=== PATIENT | male | born 1975 | race Caucasian/White ===

== ENCOUNTER 2020-01-23 17:52 | Outpatient (REF) | payer OTHER, SELFPAY ==
[2020-01-23 18:12] LABS: MANUAL DIFF FLAG NO
[2020-01-23 18:15] LABS: Basophils Absolute Auto 0.1 X10*3/uL (0.0-0.2); Basophils Percent Auto 0.7 % (0-2); Eosinophils Absolute Auto 0.2 X10*3/uL (0.0-0.4); Hematocrit 41.4 % (42-52); Hemoglobin 14.2 g/dl (14.0-18.0); Imm Gran Abs Auto 0.01 X10*3/uL (0.00-0.03); Imm Gran Pct Auto 0.1 % (0.0-0.4); Lymphocytes Absolute Auto 2.1 X10*3/uL (1.2-4.9); Mean Corpuscular HGB Conc 34.3 g/dl (31.0-36.0); Mean Corpuscular Hemoglobin 30.8 pg (27.0-33.0); Mean Corpuscular Volume 89.8 fL (80-98); Mean Platelet Volume 8.7 fL (9.4-12.4); Monocytes Absolute Auto 0.7 X10*3/uL (0.1-1.2); Monocytes Percent Auto 10.1 % (2-11); Neutrophils Absolute Auto 4.3 X10*3/uL (2.0-8.3); Neutrophils Percent Auto 59.1 % (45-73); Platelet Count 249 X10*3/uL (160-400); Red Blood Count 4.61 X10*6/uL (4.60-5.80); Red Cell Distribution Width 12.7 % (11.0-16.0); White Blood Count 7.3 X10*3/uL (4.8-10.8)
[2020-01-23 18:36] LABS: Alanine Aminotransferase 30 U/L (0-40); Albumin Level 4.8 g/dL (3.5-5.0); Alkaline Phosphatase 93 U/L (39-117); Anion Gap 13 (12-20); Aspartate Amino Transferase 23 U/L (5-37); Bilirubin Total 0.6 mg/dL (0.0-1.0); Blood Urea Nitrogen 16 mg/dL (9-16); Calcium 9.7 mg/dL (8.4-10.2); Carbon Dioxide 26 mmol/L (22-29); Chloride 99 mmol/L (96-108); Estimated Glomerular Filt Rate > 60; Glucose Random 95 mg/dL (60-115); Lipase 33 U/L (8-78); Potassium 4.1 mmol/l (3.3-5.1); Sodium 134 mmol/L (135-145)
== END 2020-01-23 17:53 | disposition home or self-care (01) ==
LOC: HO.LAB 17:52
PROVIDERS: PCP Internal Medicine; Visit Provider Internal Medicine
DX: R19.09 Other intra-abdominal and pelvic swelling, mass and lump (principal); R10.9 Unspecified abdominal pain
CPT/HCPCS: 36415; 80053; 83690; 85025

== ENCOUNTER 2020-04-16 08:40 | Outpatient (REF) | payer BC, SELFPAY ==
--- NOTE | 2020-04-16 08:46 | CT_ITS ---
EXAMINATION: CT ABDOMEN AND PELVIS WITH CONTRAST CLINICAL INFORMATION: Abdominal distention COMPARISON: Small bowel series April 2017 TECHNIQUE: Multidetector volumetric images were obtained from the superior aspect of the liver through the pubic symphysis following administration 85 mL of Omnipaque 350 intravenous contrast. Sagittal and coronal reformatted images were obtained on the technologist's workstation. Oral contrast: Yes This CT examination was performed using dose optimization techniques as appropriate, variously including the following: *Automated exposure control *Adjustment of mA and/or kV according to patient size (this includes techniques or standardized protocols for targeted exams where dose is matched to indication/reason for exam; i.e. extremities or head) *Use of iterative reconstruction technique DLP: 659 mGy-cm FINDINGS: LUNG BASES: The visualized lung bases are unremarkable. LIVER, GALLBLADDER, AND BILIARY TREE: The liver is normal in size, shape, and attenuation. No focal hepatic lesion or biliary ductal dilatation is present. The gallbladder is unremarkable with no evidence of radiopaque gallstones, gallbladder wall thickening, or obvious pericholecystic inflammatory changes. PANCREAS: Unremarkable. SPLEEN: Unremarkable. ADRENAL GLANDS: Unremarkable. KIDNEYS AND URETERS: The kidneys are normal in size, shape, and attenuation. No hydronephrosis, hydroureter, or calculi seen. No perinephric stranding. BLADDER: Unremarkable. GASTROINTESTINAL TRACT: There is diverticulosis of the colon. No evidence of diverticulitis is seen. Small and large bowel are otherwise unremarkable. The appendix is unremarkable. The stomach is unremarkable. ABDOMINAL WALL: There is an umbilical hernia containing fat. LYMPH NODES: Normal. VASCULAR: Unremarkable. PELVIC VISCERA: Unremarkable. OSSEOUS STRUCTURES: There are degenerative changes of the spine. CT/CT abdomen pelvis w con IMPRESSION: Diverticulosis of the colon. Umbilical hernia containing fat.
[2020-04-16] MEDS: Barium Sulfate Oral (Vanilla) 450 ML ORAL.SUSP 900 ML PO (10:45)
[2020-04-16] MEDS: iohexoL 350 MG/ML 100 ML INFUS..BTL 85 ML IV (10:53)
== END 2020-04-16 08:41 | disposition home or self-care (01) ==
LOC: HO.CT 08:40
PROVIDERS: Visit Provider Internal Medicine
DX: R10.9 Unspecified abdominal pain (principal); R19.09 Other intra-abdominal and pelvic swelling, mass and lump
CPT/HCPCS: 74177; Q9967

== ENCOUNTER 2020-11-02 12:40 | Outpatient (REF) | payer BC, SELFPAY ==
--- NOTE | ~2020-11-02 | US_ITS ---
EXAMINATION: US right lower abdomen, LIMITED/FOLLOW UP CLINICAL INFORMATION: Pain COMPARISON: CT scan of April 16, 2020 TECHNIQUE: Targeted ultrasound evaluation right inguinal region FINDINGS: In the region of patient's pain there appears to be a hernia which is containing fat however I cannot exclude a loop of bowel in this location. The width of the defect is only 5 mm. No definite edematous change within the surrounding tissues is appreciated and no free fluid is seen. Benign appearing inguinal lymph nodes present. US/US pelvic limited IMPRESSION: Small 5 mm in width right inguinal region hernia in region of pain containing fat and possibility of a knuckle of bowel.
== END 2020-11-02 12:41 | disposition home or self-care (01) ==
LOC: HO.US 12:40
PROVIDERS: PCP Internal Medicine; Visit Provider Nurse Practitioner Family
DX: R10.30 Lower abdominal pain, unspecified (principal); R19.09 Other intra-abdominal and pelvic swelling, mass and lump
CPT/HCPCS: 76857

== ENCOUNTER → 2020-11-06 13:39 | Outpatient (BNVA) | payer BC, SELFPAY | PROVIDERS: PCP Internal Medicine; Referring Provider Internal Medicine; Visit Provider Surgery ==

== ENCOUNTER 2020-11-15 08:53 | Day surgery (SDC) | payer BC, SELFPAY ==
--- NOTE | 2020-11-14 08:36 | HO.ANESPROP2 ---
Documented by User: Anabella Billingsley 11/14/20 08:45 HPI - Anesthesia Eval Consult details Narrative: 45yo M for Right Hernia Repair Inguinal with Mesh PMFSH Active Problems Active Problems: All Active Problems (Updated 11/06/20 @ 15:05 by Alexey Caceres MD) Umbilical hernia (Acute) Right inguinal hernia (Acute) Hernia (Acute) Inguinal swelling (Acute) Inguinal pain (Acute) Obesity (BMI 30-39.9) (Acute) Abdominal bloating (Acute) Umbilical mass (Acute) Left sided abdominal pain (Acute) Past Medical History Medical History Anxiety Attention deficit disorder Hyperlipidemia Insomnia Obesity (BMI 30-39.9) Right inguinal hernia Umbilical hernia Varicocele Family History Family History Father Coronary artery disease Hypertension Brother Hyperlipidemia Surgical History Surgical History Status post pericardial cyst excision (~08/13/16) Social History Social History Patient Tobacco Use Status: Never used Tobacco Use of substances other than those prescribed or required for medical reasons: No Are you DNR?: No Advance Directives: No Advance Directives Information Provided: Yes Meds Allergies Allergy/AdvReac Type Severity Reaction Status Date / Time No Known Allergies Allergy Verified 11/06/20 14:17 Exam Exam Date and Time: November 14, 2020 0836 Assessment and Plan Assessment Anesthesia Assessment: Chart Reviewed Documented by User: Earline Thompson MD 11/15/20 10:56 PMFSH Past Medical History Medical History Anxiety Attention deficit disorder Hyperlipidemia Insomnia Obesity (BMI 30-39.9) Right inguinal hernia Umbilical hernia Varicocele Family History Family History Father Coronary artery disease Hypertension Brother Hyperlipidemia Family history of problems with anesthesia: No Surgical History Surgical History Status post pericardial cyst excision (~08/13/16) History of Problems with Anesthesia: No Social History Social History Patient Tobacco Use Status: Never used Tobacco Use of substances other than those prescribed or required for medical reasons: No Are you DNR?: No Advance Directives: No Advance Directives Information Provided: Yes Meds Allergies Allergy/AdvReac Type Severity Reaction Status Date / Time No Known Allergies Allergy Verified 11/06/20 14:17 Exam Airway Mallampati Class: II TM Dist: >3cm Neck ROM: Full Loose/Missing/Broken Teeth: No Heart: RRR Lungs: CTA Assessment and Plan Assessment Anesthesia Assessment: Anesthesia Plan Discussed Final Anesthetic Review Family History of Problems with Anesthesia: No History of Problems with Anesthesia: No NPO: Yes ASA Class: II Final Preanesthetic Review: Meds/Allgs Chart Reviewed, Consent Obtained/Reviewed and Anes Risks/Benef Reviewed Patient Risk: Low Procedure Risk: Low Anesthetic Plan Anesthetic Plan: GA Disposition: Standard PACU
[2020-11-15] VITALS (12 sets, daily range): BP systolic 108–140; BP diastolic 67–91; PULSE 45–62; RESP 17–20; TEMP 36.1–36.3; O2SAT 97–99; BMI 30.4
[2020-11-15] MEDS: Lactated Ringers 1,000 ML 100 ML IVCONT (10:20)
--- NOTE | 2020-11-15 11:25 | MHC.SHP ---
Pre-Procedural Eval Section A Date of Service: 11/15/20 Section B Chief Complaint: Right Inguinal hernia Allergies: Allergies Allergy/AdvReac Type Severity Reaction Status Date / Time No Known Allergies Allergy Verified 11/06/20 14:17 Plan I have reviewed the history and physical and performed a pertinent physical examination on my patient. No changes have occurred unless specified.
--- NOTE | 2020-11-15 11:26 | PM.DS ---
DS: Providers Provider Primary care physician: Bobo Avilez MD DS: Medications Discharge Medications Home Medications: Previous Rx's Medication Instructions Recorded lorazepam 0.5 mg tablet 0.5 mg PO BID PRN 30 Days #60 tab 11/12/20 DS: Summary Time Spent with Patient Time attestation: Total time spent providing and/or coordinating discharge services: Physical Exam Vital Signs: Vital Signs: Last Vital Signs Temp 97.4 F 11/15/20 09:56 Pulse 62 11/15/20 09:56 Resp 18 11/15/20 09:56 BP 108/77 11/15/20 09:56 Pulse Ox 98 11/15/20 09:56 Body Mass Index 30.4 Discharge Plan Discharge Patient Disposition: Home, Self-Care Referrals: Bobo Avilez MD [Primary Care Provider] - 1 Week Discharge Medications: No Action lorazepam 0.5 mg tablet 0.5 mg PO BID PRN (Reason: anxiety) 30 Days Qty: 60 RF: 0
--- NOTE | 2020-11-15 12:34 | W.PM.OPN ---
Operative Note Operative Note Date of Service: 11/15/20 Narrative: Preop diagnosis: Right inguinal hernia Postop diagnosis: Right inguinal hernia indirect Procedure: Repair of right inguinal hernia with mesh Surgeon: Alexey Caceres MD metal forger's assistant: CHRISTINA Robertson The patient is a 45-year-old male with note of a reducible mass on the right groin with an ultrasound suggesting a right inguinal hernia. He understood the technique of repair with mesh. He was aware of the risks, benefits, and alternatives to He was brought the operating room and placed supine on the table under general anesthesia via laryngeal mask airway. The right groin was prepped and draped in the usual sterile fashion. A surgical time-out was done. The patient received cefazolin 2 g IV preoperatively. I marked my planned line of incision along an imaginary line from the anterior superior iliac spine to the pubic ramus. Infiltrated this area with lidocaine 1%. I made a short incision using a blade 15. This was carried down through the full-thickness of skin subcutaneous fat until I was able to expose the external oblique aponeurosis. By doing so, I was able to visualize the external ring. I bluntly dissected this to carefully define this. I made an incision on the external oblique aponeurosis overlying the inguinal canal using a blade 15. Incisions extended inferomedially to connect with the external ring. I applied hemostats on the edges of this divided aponeurosis. I bluntly dissected the underside of the aponeurosis to create space for the mesh. I then bluntly dissected the spermatic cord and its contents using my index finger until was able to pass a Cordell drain around this. This Greer drain was used for retraction. I identified the vas deferens and its accompanying vessels. There was note of a small hernia containing fat and this was dissected off the rest of the cord contents until this was reduced through the internal ring. I reinforced the internal ring with a small sized Prolene plug. The plug was secured with Prolene 2 sutures to the shelving edge of the inguinal ligament laterally, and the internal oblique superiorly and medially. I reinforced the floor of the canal with a keyhole mesh. The tails of the mesh were passed around the cord at level of internal ring and were secured with Prolene 2 sutures. I secured this mesh with Prolene 2 sutures shelving edge of the inguinal ligament laterally and the internal oblique superiorly and medially as well as the pubic ramus inferomedially. I then copies irrigated. Once hemostasis was ensured, I proceeded to remove the Cordell drain and closed the aponeurosis running Dexon 2-0 stitch to re-create the external ring. The subcutaneous layer was reapposed with Dexon 3-0 interrupted sutures. Skin closure was achieved with Dexon 4-0 subcuticular running stitch. The area was infiltrated with Marcaine 0.5% for postop analgesia. Steri-Strips and dressings were applied The patient tolerated procedure well. There were no complication noted. Initial and final counts of sponges and instruments were correct. Estimated blood loss was about 3 cc. The patient was extubated without difficulty and transferred to the recovery room with stable vital signs.
--- NOTE | 2020-11-15 12:40 | P.BOP_ITS ---
Brief Operative Note Date of Service: 11/15/20 Pre-op diagnosis: Right inguinal hernia Post-op diagnosis: same Procedure: Right inguinal hernia indirect Surgeon: Alexey Caceres MD Anesthesia: GLMA Was an Lottery Manager used for this Procedure?: Yes Lottery Manager: Trinh Robertson Estimated blood loss (mL): 3 Pathology: none sent Condition: stable Disposition: PACU
[2020-11-15] MEDS: oxyCODONE HCl Immed Release 5 MG TABLET PO (13:01)
[2020-11-15] MEDS: fentaNYL citrate/PF 100 MCG/2 ML VIAL 25 MCG IVPUSH ×2 (13:01→13:29)
== END 2020-11-15 14:30 | disposition home or self-care (01) ==
PROVIDERS: PCP Internal Medicine; Visit Provider Surgery
PROC: (CPT 49505; principal; 2020-11-15 11:10)
DX: K40.90 Unilateral inguinal hernia, without obstruction or gangrene, not specified as recurrent (principal); E78.5 Hyperlipidemia, unspecified; F41.9 Anxiety disorder, unspecified; F98.8 Other specified behavioral and emotional disorders with onset usually occurring in childhood and adolescence; G47.00 Insomnia, unspecified; Z79.899 Other long term (current) drug therapy
CPT/HCPCS: 49505; C1781; J0690; J1100; J2250; J2405; J3010

== ENCOUNTER → 2020-11-27 10:26 | Outpatient (BNVA) | payer BC, SELFPAY | PROVIDERS: PCP Internal Medicine; Referring Provider Internal Medicine; Visit Provider Surgery ==

== ENCOUNTER 2022-02-28 07:10 | Outpatient (REF) | payer BC, SELFPAY ==
[2022-02-28 07:22] LABS: MANUAL DIFF FLAG NO
[2022-02-28 08:02] LABS: Basophils Percent Auto 0.9 % (0-2); Eosinophils Absolute Auto 0.2 X10*3/uL (0.0-0.4); Eosinophils Percent Auto 4.1 % (0-4); Hematocrit 38.2 % (42.0-52.0); Hemoglobin 12.9 g/dl (14.0-18.0); Lymphocytes Absolute Auto 1.5 X10*3/uL (1.2-4.9); Lymphocytes Percent Auto 34.7 % (20-40); Mean Corpuscular HGB Conc 33.8 g/dl (31.0-36.0); Mean Corpuscular Hemoglobin 30.4 pg (27.0-33.0); Mean Corpuscular Volume 89.9 fL (80.0-98.0); Mean Platelet Volume 9.2 fL (9.4-12.4); Monocytes Absolute Auto 0.6 X10*3/uL (0.1-1.2); Monocytes Percent Auto 12.4 % (2-11); Neutrophils Absolute Auto 2.1 x10*3/uL (2.0-8.3); Neutrophils Percent Auto 47.9 % (45-73); Platelet Count 220 X10*3/uL (160-400); Red Blood Count 4.25 X10*6/uL (4.60-5.80); Red Cell Distribution Width 12.6 % (11.0-16.0); White Blood Count 4.4 X10*3/uL (4.8-10.8)
[2022-02-28 08:40] LABS: Alanine Aminotransferase 18 U/L (0-40); Albumin Level 4.4 g/dL (3.5-5.0); Alkaline Phosphatase 89 U/L (39-117); Anion Gap 11 (12-20); Aspartate Amino Transferase 20 U/L (5-37); Bilirubin Total 0.6 mg/dL (0.0-1.0); Blood Urea Nitrogen 15 mg/dL (9-16); Calcium 9.5 mg/dL (8.4-10.2); Carbon Dioxide 27 mmol/L (22-29); Chloride 105 mmol/L (96-108); Cholesterol 223 mg/dL; Estimated Glomerular Filt Rate > 60; Glucose Fasting 91 mg/dL (60-99); HDL Cholesterol 51 mg/dL; LDL Cholesterol Calculated 154 mg/dl; Potassium 4.4 mmol/L (3.3-5.1); Sodium 139 mmol/L (135-145); TSH reflex Free T4 1.82 uIU/mL (0.32-4.0); Total Protein 7.2 g/dL (6.5-8.0); Triglycerides 92 mg/dL; Vitamin D 25-OH Total 18.5 ng/mL (>30)
[2022-02-28 09:13] LABS: Appearance Urine Clear; Color Urine Yellow; Glucose Urine UA Negative (Negative); Leukocyte Esterase Urine Negative (Negative); Nitrite Urine Negative (Negative); PH 5.5 (5.0-9.0); Specific Gravity - Urine <= 1.005 (1.005-1.025); Urine Blood Negative (Negative); Urine Ketones Negative (Negative); Urine Protein Negative (Neg-Trace)
== END 2022-02-28 07:11 | disposition home or self-care (01) ==
LOC: HO.LAB 07:10
PROVIDERS: PCP Internal Medicine; Visit Provider Internal Medicine
DX: I10 Essential (primary) hypertension (principal); R30.0 Dysuria; E78.00 Pure hypercholesterolemia, unspecified; E55.9 Vitamin D deficiency, unspecified
CPT/HCPCS: 36415; 80053; 80061; 81003; 82306; 84443; 85025

== ENCOUNTER 2022-03-27 08:06 | Day surgery (SDC) | payer BC, SELFPAY ==
--- NOTE | 2022-03-26 09:41 | HO.ANESPROP2 ---
Documented by User: Anabella Billingsley NP 03/26/22 09:41 HPI - Anesthesia Eval Consult details Narrative: 46yo M for Hernia Repair Umbilical possible mesh PMFSH Active Problems Active Problems: All Active Problems (Updated 03/01/22 @ 09:39 by Bobo Avilez MD) Left sided abdominal pain (Acute) Umbilical mass (Acute) Abdominal bloating (Acute) Inguinal pain (Acute) Inguinal swelling (Acute) Hernia (Acute) Internal hemorrhoid, bleeding (Acute) Preoperative examination (Acute) Anxiety (Acute) Umbilical hernia (Acute) Right inguinal hernia (Acute) Obesity (BMI 30-39.9) (Acute) Past Medical History Medical History Anxiety Attention deficit disorder Hyperlipidemia Insomnia Obesity (BMI 30-39.9) Right inguinal hernia Umbilical hernia Varicocele Family History Family History Father Coronary artery disease Hypertension Brother Hyperlipidemia Family history of problems with anesthesia: No Surgical History Surgical History History of right inguinal hernia repair Status post pericardial cyst excision (~08/13/16) History of Problems with Anesthesia: No Social History Social History Housing: House Patient Tobacco Use Status: Never used Tobacco e-Cigarette/Vaping Use: Never Used Use of substances other than those prescribed or required for medical reasons: No Are you DNR?: No Advance Directives: No Advance Directives Information Provided: Yes service: No Current occupational status: employed Meds Allergies Allergy/AdvReac Type Severity Reaction Status Date / Time No Known Allergies Allergy Verified 03/23/22 12:19 Exam Exam Date and Time: March 26, 2022 0941 Pertinent Lab Results Pertinent Lab Results: Laboratory Tests 02/28/22 02/28/22 07:21 07:21 WBC 4.4 L Hgb 12.9 L Hct 38.2 L Plt Count 220 Sodium 139 Potassium 4.4 Chloride 105 Carbon Dioxide 27 BUN 15 Creatinine 0.82 Assessment and Plan Final Anesthetic Review Family History of Problems with Anesthesia: No History of Problems with Anesthesia: No Documented by User: Aneat Maxwell MD 03/27/22 09:42 PMFSH Past Medical History Medical History Anxiety Attention deficit disorder Hyperlipidemia Insomnia Obesity (BMI 30-39.9) Right inguinal hernia Umbilical hernia Varicocele Family History Family History Father Coronary artery disease Hypertension Brother Hyperlipidemia Surgical History Surgical History History of right inguinal hernia repair Status post pericardial cyst excision (~08/13/16) Social History Social History Housing: House Patient Tobacco Use Status: Never used Tobacco e-Cigarette/Vaping Use: Never Used Use of substances other than those prescribed or required for medical reasons: No Are you DNR?: No Advance Directives: No Advance Directives Information Provided: Yes service: No Current occupational status: employed Meds Allergies Allergy/AdvReac Type Severity Reaction Status Date / Time No Known Allergies Allergy Verified 03/23/22 12:19 Exam Airway Mallampati Class: III TM Dist: >3cm Neck ROM: Full Heart: RRR Lungs: CTA Assessment and Plan Final Anesthetic Review ASA Class: II Final Preanesthetic Review: No Changes in Pt Med Stat, Meds/Allgs Chart Reviewed, Consent Obtained/Reviewed and Anes Risks/Benef Reviewed Patient Risk: Low Procedure Risk: Low Anesthetic Plan Anesthetic Plan: GA Disposition: Standard PACU
[2022-03-27] VITALS (7 sets, daily range): BP systolic 114–137; BP diastolic 64–86; PULSE 51–67; RESP 16; TEMP 36.2–36.6; O2SAT 95–97; BMI 29.3
--- NOTE | 2022-03-27 09:35 | MHC.SHP ---
Pre-Procedural Eval Section A Date of Service: 03/27/22 Section B Chief Complaint: Umbilical hernia without obstruction or gangrene Details of Present Illness: Has reducible umbilical hernia Relevant Social History: None Present Medications: see Short Stay Collaborative assessment Medical History: No relevant PMH History of Previous Operations: Relevant previous surgery/procedure and date(s) Allergies: Allergies Allergy/AdvReac Type Severity Reaction Status Date / Time No Known Allergies Allergy Verified 03/23/22 12:19 Review of Systems Sugical H&P ROS: Negative: Constitution, Cardiovascular, Respiratory, Neurological, Psychiatric, Hem-Onc, Allergic/Immunologic, Gastrointestinal, Genitourinary, Musculoskeletal, Integumentary, Endocrine and Eyes/Ears/Nose/Throat Exam Surgical H&P Exam: Normal: HEENT, Normal: Heart, Normal: Lungs, Normal: Extremities, Normal: Skin and Normal: Neurological and Significant Findings: Abdomen ( small umbilical hernia) Plan Diagnosis/Plan: Unchanged I have reviewed the history and physical and performed a pertinent physical examination on my patient. No changes have occurred unless specified. Time Spent With Patient Time: Total time managing care of this patient today ____ minutes.
[2022-03-27] MEDS: Lactated Ringers 1,000 ML 100 ML IVCONT (09:41)
--- NOTE | 2022-03-27 10:29 | W.PM.OPN ---
Operative Note Operative Note Date of Service: 03/27/22 Narrative: Preop diagnosis: umbilical hernia Postop diagnosis: umbilical hernia Procedure : repair of umbilical hernia poss. mesh Surgeon: Alexey coreas MD The patient is a 46M with an umbilical hernia.He understood the technique of repair with mesh. He was aware of the risks, benefits and alternatives. He was brought to the OR and placed supine under general anesthesia via LMA. The abdomen was prepped and draped in the usual sterile fashion. A surgical timeout was done. The patient received Cefazolin preop. I infilatrated the planned line of incision with Lidocaine 1%. I made a trasnverse curvilinear incision on the skin using a blade 15. This was carried down through the full thickness of the skin and subcutaneous fat with electrocautery. I lifted the umbilicus as a flap off of the hernia contents. The hernia was fat containing. I sharply dissected the hernia contents down the the fascia. I divided adhesions off of the fascial edge. There was a good chunk of fat through the small fascial defect. I had to enlarge the defect to be able to reduce entire hernia contents. The fascial defect was about 1 cm. I used a small sized Ventralex mesh to reinforce the defect. This was flatted under the fascia. I secured the Prolene straps of the mesh to the fascial edge with Prolene 2-0 sutures. I closed the fascia with a figure of eight Maxon 1-0 stitch. I reapposed the deep subcutaneous tissue with Dexon 3-0 sutures. Skin closure was achieved with Dexon 4-0 subcuticular running stitch. I infiltrated the area with Marcaine .5% for postop analegesia. Dressings were applied and the procedure was completed. He tolerated the procedure well. There were no immediate complications. Initial and final counts of sponges and instruments were correct. Estimated blood loss was less than 10 cc. The patient was extubated without difficully and transferred to the recovery room with stable VS.
--- NOTE | 2022-03-27 13:56 | HO.POSTANES ---
Post Anesthesia Evaluation Post Anesthesia Evaluation Vital Signs: Vital Signs Temp Pulse Resp BP Pulse Ox O2 Del Method O2 Flow Rate 03/27/22 11:20 51 16 117/64 96 Room Air 03/27/22 11:05 53 16 114/68 96 Room Air 03/27/22 10:50 52 16 118/79 97 Nasal Cannula 2 03/27/22 10:45 60 16 137/77 97 Nasal Cannula 2 03/27/22 10:40 59 16 127/86 96 Nasal Cannula with ETCO2 2 03/27/22 10:35 98 F 58 16 119/76 95 Nasal Cannula with ETCO2 2 03/27/22 09:26 97.2 F 67 16 131/84 96 Room Air Anesthesia: General LMA Mental Status: Awake Pain Control: Satisfactory Nausea/Vomiting: None Hydration: Adequate Anesthesia-Related Issues: No Anes. Related Issues
== END 2022-03-27 12:10 | disposition home or self-care (01) ==
PROVIDERS: PCP Internal Medicine; Visit Provider Surgery
PROC: (CPT 49585; principal; 2022-03-27 10:00)
DX: K42.9 Umbilical hernia without obstruction or gangrene (principal); K66.0 Peritoneal adhesions (postprocedural) (postinfection); D64.9 Anemia, unspecified; F41.1 Generalized anxiety disorder; E66.9 Obesity, unspecified; Z68.30 Body mass index [BMI] 30.0-30.9, adult; E78.00 Pure hypercholesterolemia, unspecified; E55.9 Vitamin D deficiency, unspecified; I10 Essential (primary) hypertension; Z79.899 Other long term (current) drug therapy
CPT/HCPCS: 49585; C1781; J0690; J1100; J2250; J2405; J2795; J3010

== ENCOUNTER → 2022-04-16 13:05 | Outpatient (BNVA) | payer BC, SELFPAY | PROVIDERS: PCP Internal Medicine; Visit Provider Surgery | DX: Z13.89 Encounter for screening for other disorder (principal) ==

== ENCOUNTER 2022-11-18 16:25 | Outpatient (AMB) | payer BC, SELFPAY ==
[2022-11-18 16:26] VITALS: BP 122/80; PULSE 70; O2SAT 98; BMI 30.4
--- NOTE | 2022-11-18 16:26 | MHC.PC.OV ---
Vital Signs 11/18/22 16:26 Height 6 ft 3 in Weight 243 lb 2 oz BMI 30.4 BP 122/80 Blood Pressure Location Lt brachial Position Sitting Pulse 70 Pulse Source Pulse Oximeter Pulse Oximetry (%) 98 Oxygen Delivery Method Room Air Intake Visit Reasons: phy - due for colonoscopy Community Relations Assistant Required: No Accompanied by: Self / Same As Patient Allergies No Known Allergies Allergy (Verified 11/18/22 16:43) Medication List - Last Reconciled 11/18/22 by Bobo Avilez MD ibuprofen 600 mg PO Q6H PRN lorazepam 0.5 mg PO BID PRN 30 days oxycodone-acetaminophen 5-325 mg (Percocet) 1 tab PO Q4-6H PRN Tobacco use date assessed: 11/18/22 Dental Screening Dental Screen Date: 11/18/22 Did you have a dental visit in the last 12 months?: No Did you have a dental problem in the last 6 months where you did not have access to dental care?: No Was dental information given to patient?: No HPI phy - due for colonoscopy HPI Details Patient comes in today for his annual physical examination States that he feels okay He denies any headaches or dizziness Denies any chest pains, no SOB No nausea/vomiting, no abdominal pain No change in bowel habits noted Denies any acute urinary symptoms Had his umbilical hernia surgery/repair done back in March [address] Caceres - states that his surgery went well and he has not had any issues since his surgery Has been experiencing anxiety on and off lately - states that this is mostly related to his 's health issues and that she is again now at the ER at [facility] in [place] due to increasing abdominal pain and is being worked up Patient also brought in some FMLA forms for us to fill up for him - states that this is to allow him to be able to take time off at work whenever he is needed to help his as she often has to travel to [place] for her treatments in addition to all of the medical follow ups/appointments and treatments that she goes to locally [facility] Medical History Anxiety Attention deficit disorder Insomnia Obesity (BMI 30-39.9) Pure hypercholesterolemia Right inguinal hernia Umbilical hernia Varicocele Vitamin D deficiency Surgical History History of right inguinal hernia repair History of umbilical hernia repair (~03/27/22) Status post pericardial cyst excision (~08/13/16) Family History Father Coronary artery disease Hypertension Brother Hyperlipidemia Social History Housing: House Patient Tobacco Use Status: Never used Tobacco e-Cigarette/Vaping Use: Never Used service: No Current occupational status: employed Cognitive needs: No Hearing needs: No Vision needs: No Questionnaire PHQ-9 Over the last 2 weeks, how often have you been bothered by any of the following problems? 1. Little interest or pleasure in doing things: not at all 2. Feeling down, depressed, or hopeless: not at all 3. Trouble falling or staying asleep, or sleeping too much: not at all 4. Feeling tired or having little energy: not at all 5. Poor appetite or overeating: not at all 6. Feeling bad about yourself - or that you are a failure or have let yourself or your family down: not at all 7. Trouble concentrating on things, such as reading the newspaper or watching television: not at all 8. Moving or speaking so slowly that other people could have noticed. Or the opposite - being so fidgety or restless that you have been moving around a lot more than usual: not at all 9. Thoughts that you would be better off or of hurting yourself in some way: not at all Total score: 0 Depression Screening Interpretation: Negative [id number] - PHQ-9 Billing: Yes Source: Developed by Drs. Bk Reyez, Tanya Diaz, Earnest Bauer and colleagues, with an educational pierce from [employer]. Thrive Questionnaire Date Thrive assessed: 11/18/22 I am a: Patient What is your living situation today?: I have a steady place to live Within the past 12 months, did the food you bought not last and you didn't have the money to get more?: Never true Within the past 12 months, did you worry whether your food would run out before you got money to buy more?: Never true Do you have trouble paying for medicines?: No Do you have trouble getting transportation to medical appointments?: No Do you have trouble paying your heating and electricity bill?: No Do you have trouble taking care of your child, family member or friend?: No Do you have trouble with day-to-day activities such as bathing, preparing meals, shopping, managing finances, etc.?: No Are you currently unemployed and looking for a job?: No Are you interested in more education?: No Please select the resources that you would like help with: None Currently or been in a relationship where the following occur: no concerns reported AUDIT C Alcohol Use Questionnaire (AUDIT-C) 1. How often do you have a drink containing alcohol?: Never 3. How often do you have six or more drinks on one occasion?: Never Total Score: 0 Score Reviewed/Action Taken: Yes TAMARA-7 AMB Questionnaire TAMARA-7 Date TAMARA - 7 assessed: 11/18/22 Feeling nervous, anxious, or on edge: 0 = Not at all Not being able to stop or control worryin = Not at all Worrying too much about different things: 0 = Not at all Trouble relaxin = Not at all Being so restless that it is hard to sit still: 0 = Not at all Becoming easily annoyed or irritable: 0 = Not at all Feeling afraid as if something awful might happen: 0 = Not at all Total TAMARA-7 score (0-4 normal; 5-9 mild; 10-14 moderate; 15-21 severe): 0 Source: Developed by Drs. Bk Reyez, Tanya Diaz, Earnest Bauer and colleagues, with an educational pierce from [employer]. Review of Systems Const Denies chills, Denies fatigue, Denies fever(s), Denies headache(s), Denies malaise and Denies weakness Eyes Denies blurry vision, Denies change in vision, Denies irritation and Denies itchy eyes ENT Denies dysphagia, Denies dizziness, Denies otalgia, Denies headache(s), Denies nasal congestion, Denies neck pain, Denies odynophagia and Denies sore throat Card Denies chest pain, Denies rapid heart rate, Denies irregular heart rhythm, Denies palpitations and Denies dyspnea Resp Denies chest congestion, Denies cough, Denies dyspnea and Denies wheezing GI Denies abdominal pain, Denies bloating, Denies constipation, Denies dysphagia, Denies heartburn, Denies diarrhea, Denies nausea, Denies odynophagia and Denies vomiting Denies hematuria, Denies difficulty urinating, Denies dysuria, Denies urinary frequency and Denies urinary urgency Musc Denies back pain, Denies arthralgias, Denies joint swelling, Denies muscle weakness and Denies neck pain Skin/Breast Denies change in pigmentation, Denies lesions, Denies rash and Denies unusual bruising Neuro Denies dizziness, Denies headache(s), Denies paresthesias and Denies weakness Psych Reports anxiety (on and off) Endo Denies fatigue and Denies palpitations Aller/Immun Denies itchy eyes and Denies wheezing Physical exam (Primary Care) Vital Signs: Last Vital Signs Pulse 70 11/18/22 16:26 BP 122/80 11/18/22 16:26 Pulse Ox 98 11/18/22 16:26 Oxygen Delivery Method Room Air 11/18/22 16:26 BMI result Body Mass Index 30.4 Tobacco/Smoking Status: Tobacco use Status Tobacco use date assessed 11/18/22 11/18/22 16:35 Patient Tobacco Use Status Never used Tobacco 11/18/22 16:35 e-Cigarette/Vaping Use Never Used 11/18/22 16:35 PHQ-9: PHQ-9 Score PHQ-9: Total score 0 11/18/22 16:35 Depression Screening Interpretation: Negative Thrive Assessment: Date of Thrive Assessment Date Thrive assessed 11/18/22 11/18/22 16:35 Currently or been in a relationship where the following occur: no concerns reported Const General: no acute distress, alert and awake Orientation/consciousness: patient oriented x3 HENMT Head: Yes normocephalic and Yes atraumatic Ears: external ears normal, TM's normal bilaterally and EAC's normal General nose exam: No nasal discharge present Face and sinus: Yes normal facial exam and Yes sinuses nontender Teeth and gingiva: dentition normal Throat: Yes posterior oropharynx normal and Yes tonsils normal (no TP congestion) Eyes Eyelids: Yes eyelids normal Conjunctivae: conjunctivae normal Pupils: Equal, round and reactive pupils present EOM: EOMs intact bilaterally Neck Neck: Yes no lymphadenopathy and Yes supple Thyroid: Thyroid normal Resp Auscultation: clear to auscultation bilaterally, no rales and no wheezes Cardio Rate: regular rate Rhythm: regular rhythm Heart sounds: no murmurs GI Palpation (GI): Soft to palpation, nontender and No hepatosplenomegaly present Auscultation: normal bowel sounds General: Yes no CVA tenderness Back/Spine/Pelvis Back: no CVA tenderness Thoracic/Lumbar Spine: thoracic and lumbar spine normal to inspection Skin Lesions: no lesions Rashes: no rashes Neuro General: patient oriented x3, moves all extremities, no focal motor deficits and CN's II-XI intact bilaterally Cranial nerves: Yes Equal, round and reactive pupils present Cognition (Neuro): normal cognition Gait exam (Neuro): Normal gait present Extrem General: Yes no clubbing, cyanosis or edema Assessment and Plan Assessment & Plan (1) Annual physical exam: Code(s): Z00.00 - Encounter for general adult medical examination without abnormal findings Plan: Check labs (2) Pure hypercholesterolemia: Code(s): E78.00 - Pure hypercholesterolemia, unspecified Plan: Reinforced low cholesterol diet Total cholesterol was at 223 mg/dl and LDL cholesterol was at 154 mg/dl when last checked in February 2022 Will have patient recheck his fasting lipids JUAN M for follow up (3) Vitamin D deficiency: Code(s): E55.9 - Vitamin D deficiency, unspecified Plan: Will recheck his Vitamin D level for follow up As his Vitamin D level was still very low when last checked in February 2022, will start him on Vitamin D3 2000 units QD (4) Anxiety: Code(s): F41.9 - Anxiety disorder, unspecified Plan: Continue Lorazepam 0.5 mg BID PRN (5) Obesity (BMI 30-39.9): Code(s): E66.9 - Obesity, unspecified Plan: Reinforced diet/exercise as tolerated/lose weight (6) Colon cancer screening: Code(s): Z12.11 - Encounter for screening for malignant neoplasm of colon Plan: Will refer him for screening colonoscopy Plan Follow up in 6 months Reminded to get his follow up labs rechecked prior to his next appointment Orders: Orders Comprehensive [place]. Panel Fast Today E78.00 - Pure hypercholesterolemia, unspecified, Z00.00 - Encounter for general adult medical examination without abnormal findings Lipid Panel Today E78.00 - Pure hypercholesterolemia, unspecified, Z00.00 - Encounter for general adult medical examination without abnormal findings TSH reflex Free T4 Today E78.00 - Pure hypercholesterolemia, unspecified, Z00.00 - Encounter for general adult medical examination without abnormal findings Vitamin D 25-OH Total Today E55.9 - Vitamin D deficiency, unspecified, Z00.00 - Encounter for general adult medical examination without abnormal findings Complete Blood Count Auto Diff Today Z00.00 - Encounter for general adult medical examination without abnormal findings UA CC w/rflx Micro + Cult Today R30.0 - Dysuria, Z00.00 - Encounter for general adult medical examination without abnormal findings Comprehensive [place]. Panel Fast 6 Months E78.00 - Pure hypercholesterolemia, unspecified Lipid Panel 6 Months E78.00 - Pure hypercholesterolemia, unspecified Referrals Gastroenterology Referral Z12.11 - Encounter for screening for malignant neoplasm of colon Coding Level of Care Code Est Pt Prev Care 40-64y(75271) Diagnoses Annual physical exam Z00.00 Pure hypercholesterolemia E78.00 Vitamin D deficiency E55.9 Anxiety F41.9 Obesity (BMI 30-39.9) E66.9 Colon cancer screening Z12.11
== END 2022-11-18 17:02 | disposition home or self-care (01) ==
PROVIDERS: PCP Internal Medicine; Visit Provider Internal Medicine
DX: Z00.00 Encounter for general adult medical examination without abnormal findings (principal); E66.9 Obesity, unspecified; Z68.30 Body mass index [BMI] 30.0-30.9, adult; F41.9 Anxiety disorder, unspecified; E55.9 Vitamin D deficiency, unspecified; E78.00 Pure hypercholesterolemia, unspecified
CPT/HCPCS: 99396

== ENCOUNTER 2022-12-30 08:15 | Outpatient (REF) | payer BC, SELFPAY ==
[2022-12-30 08:30] LABS: MANUAL DIFF FLAG NO
[2022-12-30 08:50] LABS: Basophils Percent Auto 0.4 % (0-2); Eosinophils Absolute Auto 0.1 X10*3/uL (0.0-0.4); Eosinophils Percent Auto 2.3 % (0-4); Hematocrit 38.4 % (42.0-52.0); Hemoglobin 13.1 g/dl (14.0-18.0); Imm Gran Abs Auto 0.01 X10*3/uL (0.00-0.03); Imm Gran Pct Auto 0.2 % (0.0-0.4); Lymphocytes Absolute Auto 1.6 X10*3/uL (1.2-4.9); Lymphocytes Percent Auto 30.7 % (20-40); Mean Corpuscular HGB Conc 34.1 g/dl (31.0-36.0); Mean Corpuscular Hemoglobin 30.1 pg (27.0-33.0); Mean Corpuscular Volume 88.3 fL (80.0-98.0); Mean Platelet Volume 8.9 fL (9.4-12.4); Monocytes Absolute Auto 0.7 X10*3/uL (0.1-1.2); Monocytes Percent Auto 12.7 % (2-11); Neutrophils Absolute Auto 2.8 x10*3/uL (2.0-8.3); Neutrophils Percent Auto 53.7 % (45-73); Platelet Count 217 X10*3/uL (160-400); Red Blood Count 4.35 X10*6/uL (4.60-5.80); Red Cell Distribution Width 12.7 % (11.0-16.0); White Blood Count 5.3 X10*3/uL (4.8-10.8)
[2022-12-30 09:18] LABS: Appearance Urine Clear; Color Urine Yellow; Glucose Urine UA Negative (Negative); Leukocyte Esterase Urine Negative (Negative); Nitrite Urine Negative (Negative); PH 5.5 (5.0-9.0); Specific Gravity - Urine >= 1.030 (1.005-1.025); Urine Blood Negative (Negative); Urine Ketones Negative (Negative); Urine Protein Negative (Neg-Trace)
[2022-12-30 10:17] LABS: Alanine Aminotransferase 21 U/L (0-40); Albumin Level 4.3 g/dL (3.5-5.0); Alkaline Phosphatase 97 U/L (39-117); Anion Gap 12 (12-20); Aspartate Amino Transferase 22 U/L (5-37); Bilirubin Total 0.8 mg/dL (0.0-1.0); Blood Urea Nitrogen 12 mg/dL (9-16); Calcium 9.6 mg/dL (8.4-10.2); Carbon Dioxide 25 mmol/L (22-29); Chloride 107 mmol/L (96-108); Cholesterol 207 mg/dL (<200); Estimated Glomerular Filt Rate > 60; Glucose Fasting 84 mg/dL (60-99); HDL Cholesterol 46 mg/dL (>40); LDL Cholesterol Calculated 137 mg/dL (<100); Sodium 140 mmol/L (135-145); Total Protein 7.5 g/dL (6.5-8.0); Triglycerides 121 mg/dL (<150)
[2022-12-30 10:43] LABS: TSH reflex Free T4 1.43 uIU/mL (0.32-4.0); Vitamin D 25-OH Total 24.9 ng/mL (>30)
== END 2022-12-30 08:16 | disposition home or self-care (01) ==
LOC: HO.LAB 08:15
PROVIDERS: PCP Internal Medicine; Visit Provider Internal Medicine
DX: Z00.00 Encounter for general adult medical examination without abnormal findings (principal); E55.9 Vitamin D deficiency, unspecified; R30.0 Dysuria; E78.00 Pure hypercholesterolemia, unspecified
CPT/HCPCS: 36415; 80053; 80061; 81003; 82306; 84443; 85025

== ENCOUNTER 2023-01-05 07:39 | Outpatient (AMB) | payer BC, SELFPAY ==
--- NOTE | 2023-01-05 07:49 | A.OFFVIS_ITS ---
Intake Vital Signs 01/05/23 08:47 Height 6 ft 3 in Weight 233 lb 3 oz BMI 29.1 BP 117/78 Blood Pressure Location Lt brachial Position Sitting Pulse 56 Comment Pulse ox malfunctioning Intake Visit Reasons: Colonoscopy Screening Allergies No Known Allergies Allergy (Verified 11/18/22 16:43) HPI Colonoscopy Screening HPI0 Details 47-year-old male here for preprocedural meeting to discuss a screening colonoscopy. He is referred by Bobo Avilez of [facility] primary care. PMX High cholesterol Umbilical and inguinal hernias Obesity Anxiety/ADD/insomnia * SURGICAL HISTORY Umbilical hernia repair Right inguinal hernia repair Pericardial cyst excision * ALLERGIES: NKDA * [facility] Shift labs: Laboratory Tests 12/30/22 08:25 WBC 5.3 Hgb 13.1 L Hct 38.4 L MCV 88.3 MCH 30.1 Plt Count 217 Estimated GFR > 60 Total Bilirubin 0.8 AST 22 ALT 21 Alkaline Phosphata se 97 TSH 1.43 TODAY'S VISIT This is his first colonoscopy He has some rectal leakage after his BM no other problems with his bowels, no upper GI problems. There are no prior problems with or sedation. He denies any cardiac or respiratory problems. No ID problems. There is no known FHX of crc or polyps. [facility] Medical History Anxiety Attention deficit disorder Insomnia Obesity (BMI 30-39.9) Pure hypercholesterolemia Right inguinal hernia Umbilical hernia Varicocele Vitamin D deficiency Surgical History History of right inguinal hernia repair History of umbilical hernia repair (~03/27/22) Status post pericardial cyst excision (~08/13/16) Family History Father Coronary artery disease Hypertension Brother Hyperlipidemia Social History Housing: House Patient Tobacco Use Status: Never used Tobacco e-Cigarette/Vaping Use: Never Used service: No Current occupational status: employed Cognitive needs: No Hearing needs: No Vision needs: No Review of Systems Const Denies fatigue, Denies fever(s), Denies night sweats, Denies poor appetite and D enies weight loss Eyes Details: glasses Reports requires corrective lenses ENT Reports Normal hearing present, Denies dental pain, Denies dysphagia, Denies hearing loss, Denies mouth pain, Denies odynophagia, Denies throat swelling, Denies tongue swelling and Reports other (Dentition adequate) Card Reports no additional complaints Resp Reports no additional complaints GI Denies abdominal pain, Denies melena, Denies bloating, Denies hematochezia, Denies constipation, Denies GI cramping, Denies dysphagia, Denies excessive flatus, Denies early satiety, Denies heartburn, Denies diarrhea, Denies nausea, Denies odynophagia, Denies vomiting, Denies hematemesis and Reports other (Or rectal leakage after 1st BM only) Skin/Breast Denies pruritus, Denies lesions, Denies rash and Denies jaundice Neuro Reports Normal hearing present, Denies Abnormal speech present and Reports tremor(s) (With outstretched hand at shoulder level) Endo Denies fatigue Aller/Immun Denies throat swelling and Denies tongue swelling Physical Exam Const General: cooperative, no acute distress, well developed and well groomed Nutritional Appearance: average body habitus and well nourished Orientation/consciousness: oriented to person, oriented to place and oriented to time Limitations: No language barrier HEENT Head: Yes normocephalic and Yes atraumatic Eyes General: appearance normal, both eyes and all related structures Pupils: Equal, round and reactive pupils present Neck Neck: Yes normal visual inspection and Yes no lymphadenopathy Thyroid: Thyroid normal Resp Effort & Inspection: normal respiratory effort and able to speak in complete sentences Auscultation: clear to auscultation bilaterally Cardio Rate: regular rate Rhythm: regular rhythm Heart sounds: Normal, physiologic split S2 sound present Peripheral pulses: radial pulses present and posterior tibial pulses present GI Inspection: No distended and No Abdominal panniculus present Palpation (GI): Soft to palpation, nontender, no guarding and not rigid Percussion: Yes normal to percussion Auscultation: normal bowel sounds Rectal Exam - Male: Yes deferred Skin General skin exam: no rashes or lesions noted, turgor normal, skin not dry, no jaundice, No spider nevi and no striae Rashes: no rashes Nails: normal Neuro General: oriented to person, oriented to place and oriented to time Cranial nerves: Yes Equal, round and reactive pupils present and Yes Normal hearing present Speech: No Abnormal speech present Extrem General: Yes normal to inspection, No clubbing, No cyanosis and No edema Psych Appearance: grossly normal and well kempt Mental Status: mental status grossly normal Speech and movement: Normal speech and movement present Affect: normal affect Attitude: cooperative Thought process: Normal thought process present and not confabulating Thought content: Normal thought content present Insight: Fair insight present (Psych) Judgement: Fair judgement present (Psych) Assessment & Plan Assessment & Plan (1) Preoperative examination: Code(s): Z01.818 - Encounter for other preprocedural examination Plan: This is his first colonoscopy He has some rectal leakage after his BM no other problems with his bowels, no upper GI problems. Patient denies any current rectal bleeding. There are no prior problems with or sedation. He denies any cardiac or respiratory problems. No ID problems. There is no known FHX of crc or polyps. (2) Internal hemorrhoid, bleeding: Comment: advised this is likely internal hemorrhoids that are bleeding, probably irritated from the diarrhea. Advised follow-up with PCP if it continues for colonoscopy or sigmoidsocopy. gave red flag warning signs and when to go to the emergency department such as copious amounts of blood in the toilet mixed in with his stool, abdominal pain or fever. Code(s): K64.8 - Other hemorrhoids Orders: Orders Colonoscopy - GI Use Only Today Medications: New peg 3350-electrolytes 236-22.74-6.74 -5.86 gram (Golytely) until fecal effluent is clear; do not exceed a total volume of 2,000 mL 240 mL PO Q10M 1 day 4,000 mL 0RF Z12.11 - Encounter for screening for malignant neoplasm of colon Coding Level of Care Code New Pt Level 3 (94753) Diagnoses Preoperative examination Z01.818 Internal hemorrhoid, bleeding K64.8
[2023-01-05 08:47] VITALS: BP 117/78; PULSE 56; BMI 29.1
== END 2023-01-05 09:52 | disposition home or self-care (01) ==
PROVIDERS: PCP Internal Medicine; Visit Provider Nurse Practitioner
DX: Z01.818 Encounter for other preprocedural examination (principal); Z12.11 Encounter for screening for malignant neoplasm of colon; K64.8 Other hemorrhoids
CPT/HCPCS: S0285

== ENCOUNTER → 2023-01-05 07:39 | Outpatient (BNVA) | payer BC, SELFPAY | PROVIDERS: PCP Internal Medicine; Visit Provider Nurse Practitioner ==

== ENCOUNTER 2023-02-25 10:20 | Day surgery (SDC) | payer BC, SELFPAY ==
[2023-02-23 12:58] VITALS: BMI 29.1
--- NOTE | 2023-02-24 10:16 | HO.ANESPROP2 ---
Documented by User: Anabella Billingsley NP 02/24/23 10:17 HPI - Anesthesia Eval Consult details Narrative: 47yo M for Colonoscopy PMFSH Active Problems Active Problems: All Active Problems (Updated 11/18/22 @ 17:09 by Bobo Avilez MD) Colon cancer screening (Acute) Vitamin D deficiency (Acute) Pure hypercholesterolemia (Acute) Annual physical exam (Acute) Left sided abdominal pain (Acute) Umbilical mass (Acute) Abdominal bloating (Acute) Inguinal pain (Acute) Inguinal swelling (Acute) Hernia (Acute) Internal hemorrhoid, bleeding (Acute) Preoperative examination (Acute) Anxiety (Acute) Umbilical hernia (Acute) Right inguinal hernia (Acute) Obesity (BMI 30-39.9) (Acute) Past Medical History Medical History Anxiety Attention deficit disorder Insomnia Obesity (BMI 30-39.9) Pure hypercholesterolemia Right inguinal hernia Umbilical hernia Varicocele Vitamin D deficiency Family History Family History Father Coronary artery disease Hypertension Brother Hyperlipidemia Family history of problems with anesthesia: No Surgical History Surgical History History of right inguinal hernia repair History of umbilical hernia repair (~03/27/22) Status post pericardial cyst excision (~08/13/16) History of Problems with Anesthesia: No Social History Social History Housing: House Patient Tobacco Use Status: Never used Tobacco e-Cigarette/Vaping Use: Never Used Are you DNR?: No Advance Directives: No Advance Directives Information Provided: Yes Nutrition Risks: No Nutritional Risk service: No Current occupational status: employed Cognitive needs: No Hearing needs: No Vision needs: No Meds Allergies Allergy/AdvReac Type Severity Reaction Status Date / Time No Known Allergies Allergy Verified 11/18/22 16:43 Home Medications Medication Instructions Recorded Confirmed Last Taken Type No Known Home Meds 02/25/23 02/25/23 Unknown History Exam Exam Date and Time: February 24, 2023 1016 Height,Weight and Vital Signs: Height 6 ft 3 in Weight 105.687 kg Pertinent Lab Results Pertinent Lab Results: Laboratory Tests 12/30/22 08:25 WBC 5.3 Hgb 13.1 L Hct 38.4 L Plt Count 217 Sodium 140 Potassium 4.0 Chloride 107 Carbon Dioxide 25 BUN 12 Creatinine 0.84 Assessment and Plan Assessment Anesthesia Assessment: Chart Reviewed Final Anesthetic Review Family History of Problems with Anesthesia: No History of Problems with Anesthesia: No Documented by User: José Luis Cui MD 02/25/23 11:05 [facility] Past Medical History Medical History Anxiety Attention deficit disorder Insomnia Obesity (BMI 30-39.9) Pure hypercholesterolemia Right inguinal hernia Umbilical hernia Varicocele Vitamin D deficiency Family History Family History Father Coronary artery disease Hypertension Brother Hyperlipidemia Surgical History Surgical History History of right inguinal hernia repair History of umbilical hernia repair (~03/27/22) Status post pericardial cyst excision (~08/13/16) Social History Social History Housing: House Patient Tobacco Use Status: Never used Tobacco e-Cigarette/Vaping Use: Never Used Are you DNR?: No Advance Directives: No Advance Directives Information Provided: Yes Nutrition Risks: No Nutritional Risk service: No Current occupational status: employed Cognitive needs: No Hearing needs: No Vision needs: No Meds Allergies Allergy/AdvReac Type Severity Reaction Status Date / Time No Known Allergies Allergy Verified 11/18/22 16:43 Home Medications Medication Instructions Recorded Confirmed Last Taken Type No Known Home Meds 02/25/23 02/25/23 Unknown History Exam Airway Mallampati Class: III TM Dist: >3cm Neck ROM: Full Heart: rrr Lungs: cta Assessment and Plan Assessment Anesthesia Assessment: Anesthesia Plan Discussed Final Anesthetic Review NPO: Yes ASA Class: II Final Preanesthetic Review: No Changes in Pt Med Stat, Meds/Allgs Chart Reviewed, Consent Obtained/Reviewed and Anes Risks/Benef Reviewed Patient Risk: Low Procedure Risk: Low Anesthetic Plan Anesthetic Plan: MAC: and Agree w/ Assess. and Plan Disposition: Standard PACU
[2023-02-25 10:35] VITALS: BMI 28.6
[2023-02-25 10:42] VITALS: BP 151/95; PULSE 60; RESP 18; TEMP 36.1; O2SAT 97
[2023-02-25] MEDS: Lactated Ringers 1,000 ML 100 ML IVCONT (10:53)
--- NOTE | 2023-02-25 11:08 | MHC.SHP ---
Pre-Procedural Eval Section A Date of Service: 02/25/23 Section B Chief Complaint: screening Relevant Family History (Specify if Yes): No Relevant Social History: None Present Medications: see Short Stay Collaborative assessment Medical History: Significant History (Anxiety Attention deficit disorder Insomnia Obesity (BMI 30-39.9) Pure hypercholesterolemia Right inguinal hernia Umbilical hernia Varicocele Vitamin D deficiency) History of Previous Operations: Relevant previous surgery/procedure and date(s) (History of right inguinal hernia repair History of umbilical hernia repair (~03/27/22) Status post pericardial cyst excision (~08/13/16)) Allergies: Allergies Allergy/AdvReac Type Severity Reaction Status Date / Time No Known Allergies Allergy Verified 11/18/22 16:43 Review of Systems Sugical H&P ROS: Negative: Constitution, Cardiovascular, Respiratory, Neurological, Psychiatric, Hem-Onc, Allergic/Immunologic, Gastrointestinal, Genitourinary, Musculoskeletal, Integumentary, Endocrine and Eyes/Ears/Nose/Throat Exam Surgical H&P Exam: Normal: HEENT, Normal: Heart, Normal: Lungs, Normal: Extremities, Normal: Abdomen, Normal: Skin and Normal: Neurological Plan Diagnosis/Plan: Unchanged I have reviewed the history and physical and performed a pertinent physical examination on my patient. No changes have occurred unless specified. Time Spent With Patient Time: Total time managing care of this patient today ____ minutes.
--- NOTE | 2023-02-25 11:10 | W.PM.OPN ---
Operative Note Operative Note Date of Service: 02/25/23 Narrative: Operative Information Procedure Description: Colonoscopy Indication: screening Anesthesia: MAC COLONOSCOPY Instrument: Olympus variable stiffness ADULT scope 190L Colonoscopy Monitoring: Vital signs and clinical assessment, continuous EKG monitoring, Pulse oximetry, Carbon Dioxide monitoring and blood pressure monitoring were done throughout the procedure. Colon withdrawal time was 10 minutes. Procedure: The patient was placed in the left lateral decubitis position and pre-procedure medications were administered. After a digital rectal examination of the ano-rectum, the video colonoscope was inserted into the rectum and advanced through the colon to the cecum/TI. The colonoscope was slowly withdrawn in a retrograde panoramic fashion and the colon mucosa was carefully examined including a retroflexed view of the rectum. Findings and interventions are described below. Procedure Difficulty: easy Findings: Terminal Ileum- ileitis and erosions, bx taken Cecum:normal, bx taken Ascending Colon: normal, bx taken Transverse Colon -normal Descending Colon: diverticulosis Sigmoid Colon: moderate severe diverticulosis Rectum: Retroflexion with small internal hemorrhoids, grade I Anorectum - normal Colon preparation: [place] Bowel Preparation Scale Right colon; 2 Transverse colon: 2 Left colon; 3 (0 = Unprepared colon segment with mucosa not seen due to solid stool that cannot be cleared. 1 = Portion of mucosa of the colon segment seen, but other areas of the colon segment not well seen due to staining, residual stool and/or opaque liquid. 2 = Minor amount of residual staining, small fragments of stool and/or opaque liquid, but mucosa of colon segment seen well. 3 = Entire mucosa of colon segment seen well with no residual staining, small fragments of stool or opaque liquid) Impression and Post Procedure Diagnosis: ileitis internal hemorrhoids diverticular disease Plan: High fiber diet leaflet Avoid straining at stool, epsom salts and sitz bath, anusol supps or cream Repeat Colonoscopy in 10 years or earlier if clinically indicated confirm nsaid hx, if neg and has sx then can consider CTe vs capsule endoscopy and w/u for crohns Above findings were reviewed with the patient and relevant handouts were provided if indicated.
[2023-02-25 11:35] VITALS: BP 110/65; PULSE 64; RESP 16; TEMP 36.1; O2SAT 97
[2023-02-25 11:50] VITALS: BP 137/94; PULSE 58; RESP 14; O2SAT 98
[2023-02-25 11:55] VITALS: BP 144/88; PULSE 63; RESP 16; TEMP 36.3; O2SAT 98
== END 2023-02-25 12:48 | disposition home or self-care (01) ==
PROVIDERS: PCP Internal Medicine; Visit Provider Internal Medicine Gastroenterology
PROC: 0DJD8ZZ Inspection of Lower Intestinal Tract, Via Natural or Artificial Opening Endoscopic (ICD-10-PCS; CPT 45378; principal; 2023-02-25 11:10)
DX: Z12.11 Encounter for screening for malignant neoplasm of colon (principal); K52.9 Noninfective gastroenteritis and colitis, unspecified; K57.30 Diverticulosis of large intestine without perforation or abscess without bleeding; K64.0 First degree hemorrhoids; R15.1 Fecal smearing; E55.9 Vitamin D deficiency, unspecified; E78.00 Pure hypercholesterolemia, unspecified
CPT/HCPCS: 45380; 88305; J2704

== ENCOUNTER → 2023-02-25 10:20 | Outpatient (BNV) | payer BC, SELFPAY | PROVIDERS: PCP Internal Medicine; Visit Provider Internal Medicine Gastroenterology | DX: Z12.11 Encounter for screening for malignant neoplasm of colon (principal); K52.9 Noninfective gastroenteritis and colitis, unspecified; K57.30 Diverticulosis of large intestine without perforation or abscess without bleeding; K64.0 First degree hemorrhoids | CPT/HCPCS: 45380 ==

== ENCOUNTER 2023-03-11 13:07 | Outpatient (AMB) | payer BC, SELFPAY ==
--- NOTE | 2023-03-11 13:14 | A.OFFVIS_ITS ---
Intake Vital Signs 03/11/23 13:24 Height 6 ft 3 in Weight 237 lb 3.478 oz BMI 29.6 BP 142/85 H Blood Pressure Location Lt brachial Position Sitting Pulse 101 H Intake Visit Reasons: S/p colon López Intake Note: Patient presents to in office visit today in follow up of colonoscopy. CC: Patient reports occasional RUQ abdominal pain. Denies other GI symptoms today. Allergies No Known Allergies Allergy (Verified 03/11/23 13:27) HPI S/p colon López HPI Details Assessment & Plan (1) Preoperative examination: Code(s): Z01.818 - Encounter for other preprocedural examination Plan: This is his first colonoscopy He has some rectal leakage after his BM no other problems with his bowels, no upper GI problems. Patient denies any current rectal bleeding. There are no prior problems with or sedation. He denies any cardiac or respiratory problems. No ID problems. There is no known FHX of crc or polyps. (2) Internal hemorrhoid, bleeding: Comment: Code(s): K64.8 - Other hemorrhoids Orders: Orders Colonoscopy - GI U se Only Today Medications: New peg 3350-electroly altagracia 236-22.74-6.74 -5.86 gram (Golyt dany) until feca l effluent is maria del carmen r; do not exceed a total volume of 2 ,000 mL 240 mL PO Q10M 1 day 4,000 mL 0RF Z12.11 - Encounter for screening for malignant neoplas m of colon COLONOSCOPY 02/25/23 Findings: Terminal Ileum- ileitis and erosions, bx taken Cecum:normal, bx taken Ascending Colon: normal, bx taken Transverse Colon -normal Descending Colon: diverticulosis Sigmoid Colon: moderate severe diverticulosis Rectum: Retroflexion with small internal hemorrhoids, grade I Anorectum - normal The Impression and Post Procedure Diagnosis: ileitis internal hemorrhoids diverticular disease Plan: High fiber diet leaflet Avoid straining at stool, epsom salts and sitz bath, anusol supps or cream Repeat Colonoscopy in 10 years or earlier if clinically indicated confirm nsaid hx, if neg and has sx then can consider CTe vs capsule endoscopy and w/u for crohns BIOPSY Received: Diagnosis A. Terminal ileum, biopsy: Ileal mucosa with edema and rare neutrophils which may represent mild active ileitis (see comment). B. Colon, right, biopsy: Colonic mucosa with focal lamina propria hemorrhage otherwise no specific change; no colitis, granulomas or dysplasia. Comment: (A): These mild changes may be seen with NSAID/drug-related injury, infection/self-limited, or inflammatory bowel disease and clinical correlation is necessary. No granulomas or dysplasia are seen. TODAY'S VISIT He is agreeable to a 10 year follow-up. The procedure was well tolerated. The results were explained and the patient is agreeable to the follow-up interval as stated. The bowel pattern has returned to normal. Education was provided to tell any 1st degree relatives about their findings to be sure that they are screened by age 45. Educated that they will be put on a recall list when it is time for their repeat scope but should they move out of state or away from the hospital they will need to remember along with their primary to repeat the proc edure in a timely fashion to avoid any adverse complications. With regards to the possible ileal irritation he really has no symptoms except for occasional rectal leakage. Generally his bowel movements are formed. He also has no alarm symptoms some shows weight loss, nausea vomiting or abdominal pain. He is rather familiar with inflammatory bowel disease as his has Crohn's disease. He is currently going through quite a lot of stress because his [id number]-vm-yys is in poor health and may be close to the end of her life and her daughter is trying to manage this and her own Crohn's disease. With this he really does not need a lot more medical examinations particularly for something that is not causing him symptoms. He was educated that he could have an early form of Crohn's or it could be there is colon was simply irritated by the prep. We reviewed alarm signs and symptoms that would necessitate him coming back to see me any certainly is welcome to our practice at any time. He feels good with this and is in agreement. Return office visit as needed [facility] Medical History (Updated 03/11/23 @ 17:38 by ANGELI Aguilar) Vitamin D deficiency Pure hypercholesterolemia Umbilical hernia Right inguinal hernia Obesity (BMI 30-39.9) Varicocele Insomnia Anxiety Attention deficit disorder Surgical History (Updated 03/11/23 @ 17:38 by ANGELI Aguilar) H/O colonoscopy History of umbilical hernia repair (~03/27/22) History of right inguinal hernia repair Status post pericardial cyst excision (~08/13/16) Family History Father Coronary artery disease Hypertension Brother Hyperlipidemia Social History Housing: House Patient Tobacco Use Status: Never used Tobacco e-Cigarette/Vaping Use: Never Used service: No Current occupational status: employed Cognitive needs: No Hearing needs: No Vision needs: No Review of Systems Const Denies fatigue, Denies fever(s), Denies night sweats, Denies poor appetite and Denies weight loss ENT Reports Normal hearing present, Denies dental pain, Denies dysphagia, Denies hearing loss, Denies mouth pain, Denies odynophagia, Denies throat swelling, Denies tongue swelling and Reports other (Dentition adequate) Card Reports no additional complaints Resp Reports no additional complaints GI Denies abdominal pain, Denies melena, Denies bloating, Denies hematochezia, Denies constipation, Denies GI cramping, Denies dysphagia, Denies excessive flatus, Denies early satiety, Denies heartburn, Denies diarrhea, Denies nausea, Denies odynophagia, Denies vomiting and Denies hematemesis Skin/Breast Denies pruritus, Denies lesions, Denies rash and Denies jaundice Neuro Reports Normal hearing present and Denies Abnormal speech present Endo Denies fatigue Aller/Immun Denies throat swelling and Denies tongue swelling Physical Exam Vital Signs: Last Vital Signs Pulse 101 H 03/11/23 13:24 BP 142/85 H 03/11/23 13:24 BMI result Body Mass Index 29.6 Const General: cooperative, no acute distress, well developed and well groomed Nutritional Appearance: well nourished and overweight Orientation/consciousness: oriented to person, oriented to place and oriented to time Limitations: No language barrier HEENT Head: Yes normocephalic and Yes atraumatic Eyes General: appearance normal, both eyes and all related structures Pupils: Equal, round and reactive pupils present Neck Neck: Yes normal visual inspection and Yes no lymphadenopathy Thyroid: Thyroid normal Resp Effort & Inspection: normal respiratory effort and able to speak in complete sentences Auscultation: clear to auscultation bilaterally Cardio Rate: regular rate Rhythm: regular rhythm Heart sounds: Normal, physiologic split S2 sound present Peripheral pulses: radial pulses present and posterior tibial pulses present GI Inspection: No distended and No Abdominal panniculus present Palpation (GI): Soft to palpation, nontender, no guarding, not rigid and No hepatosplenomegaly present Percussion: Yes normal to percussion Auscultation: normal bowel sounds Rectal Exam - Male: Yes deferred Skin General skin exam: no rashes or lesions noted, turgor normal, skin not dry, no jaundice, No spider nevi and no striae Rashes: no rashes Nails: normal Neuro General: oriented to person, oriented to place and oriented to time Cranial nerves: Yes Equal, round and reactive pupils present and Yes Normal hearing present Speech: No Abnormal speech present Extrem General: Yes normal to inspection, No clubbing, No cyanosis and No edema Psych Appearance: grossly normal and well kempt Mental Status: mental status grossly normal Speech and movement: Normal speech and movement present Affect: normal affect Attitude: cooperative Thought process: Normal thought process present and not confabulating Thought content: Normal thought content present Insight: Fair insight present (Psych) Judgement: Fair judgement present (Psych) Results Reviewed Results Reviewed: COLONOSCOPY 02/25/23 Findings: Terminal Ileum- ileitis and erosions, bx taken Cecum:normal, bx taken Ascending Colon: normal, bx taken Transverse Colon -normal Descending Colon: diverticulosis Sigmoid Colon: moderate severe diverticulosis Rectum: Retroflexion with small internal hemorrhoids, grade I Anorectum - normal The Impression and Post Procedure Diagnosis: ileitis internal hemorrhoids diverticular disease Plan: High fiber diet leaflet Avoid straining at stool, epsom salts and sitz bath, anusol supps or cream Repeat Colonoscopy in 10 years or earlier if clinically indicated confirm nsaid hx, if neg and has sx then can consider CTe vs capsule endoscopy and w/u for crohns BIOPSY Received: Diagnosis A. Terminal ileum, biopsy: Ileal mucosa with edema and rare neutrophils which may represent mild active ileitis (see comment). B. Colon, right, biopsy: Colonic mucosa with focal lamina propria hemorrhage otherwise no specific change; no colitis, granulomas or dysplasia. Comment: (A): These mild changes may be seen with NSAID/drug-related injury, infection/self-limited, or inflammatory bowel disease and clinical correlation is necessary. No granulomas or dysplasia are seen. Assessment & Plan Assessment & Plan (1) Internal hemorrhoid, bleeding: Code(s): K64.8 - Other hemorrhoids Plan: He is agreeable to a 10 year follow-up. The procedure was well tolerated. The results were explained and the patient is agreeable to the follow-up interval as stated. The bowel pattern has returned to normal. Education was provided to tell any 1st degree relatives about their findings to be sure that they are screened by age 45. Educated that they will be put on a recall list when it is time for their repeat scope but should they move out of state or away from the hospital they will need to remember along with their primary to repeat the procedure in a timely fashion to avoid any adverse complications. With regards to the possible ileal irritation he really has no symptoms except for occasional rectal leakage. Generally his bowel movements are formed. He also has no alarm symptoms some shows weight loss, nausea vomiting or abdominal pain. He is rather familiar with inflammatory bowel disease as his has Crohn's disease. He is currently going through quite a lot of stress because his xcevgr-zt-rvs is in poor health and may be close to the end of her life and her daughter is trying to manage this and her own Crohn's disease. With this he really does not need a lot more medical examinations particularly for something that is not causing him symptoms. He was educated that he could have an early form of Crohn's or it could be there is colon was simply irritated by the prep. We reviewed alarm signs and symptoms that would necessitate him coming back to see me any certainly is welcome to our practice at any time. He feels good with this and is in agreement. Return office visit as needed (2) Ileal erosions: Code(s): K63.3 - Ulcer of intestine Plan He is agreeable to a 10 year follow-up. The procedure was well tolerated. The results were explained and the patient is agreeable to the follow-up interval as stated. The bowel pattern has returned to normal. Education was provided to tell any 1st degree relatives about their findings to be sure that they are screened by age 45. Educated that they will be put on a recall list when it is time for their repeat scope but should they move out of state or away from the hospital they will need to remember along with their primary to repeat the procedure in a timely fashion to avoid any adverse complications. With regards to the possible ileal irritation he really has no symptoms except for occasional rectal leakage. Generally his bowel movements are formed. He a lso has no alarm symptoms some shows weight loss, nausea vomiting or abdominal pain. He is rather familiar with inflammatory bowel disease as his has Crohn's disease. He is currently going through quite a lot of stress because his ivunft-fk-piv is in poor health and may be close to the end of her life and her daughter is trying to manage this and her own Crohn's disease. With this he really does not need a lot more medical examinations particularly for something that is not causing him symptoms. He was educated that he could have an early form of Crohn's or it could be there is colon was simply irritated by the prep. We reviewed alarm signs and symptoms that would necessitate him coming back to see me any certainly is welcome to our practice at any time. He feels good with this and is in agreement. Return office visit as needed Coding Level of Care Code Est Pt Level 3 (16113) Diagnoses Internal hemorrhoid, bleeding K64.8 Ileal erosions K63.3
[2023-03-11 13:24] VITALS: BP 142/85; PULSE 101; BMI 29.6
== END 2023-03-11 13:54 | disposition home or self-care (01) ==
PROVIDERS: PCP Internal Medicine; Visit Provider Nurse Practitioner
DX: K64.8 Other hemorrhoids (principal); K63.3 Ulcer of intestine
CPT/HCPCS: 99213

== ENCOUNTER → 2023-03-11 13:07 | Outpatient (BNVA) | payer BC, SELFPAY | PROVIDERS: PCP Internal Medicine; Visit Provider Nurse Practitioner ==

== ENCOUNTER 2023-07-12 16:09 | Outpatient (AMB) | payer BC, SELFPAY ==
--- NOTE | 2023-07-12 16:12 | MHC.PC.OV ---
Vital Signs 07/12/23 16:15 Height 6 ft 3 in Weight 240 lb 8 oz BMI 30.1 BP 100/72 Blood Pressure Location Lt brachial Position Sitting Pulse 76 Pulse Source Pulse Oximeter Pulse Oximetry (%) 98 Oxygen Delivery Method Room Air Intake Visit Reasons: Anxiety follow-up Intake Note: Patient is here to follow up on Anxiety, Hypercholesterolemia. 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: Not Required per policy Accompanied by: Self / Same As Patient Allergies No Known Allergies Allergy (Verified 08/24/24 09:13) Medication List - Last Reconciled 07/12/23 by Bobo Avilez MD No Known Home Meds Tobacco use date assessed: 07/12/23 Dental Screening Dental Screen Date: 07/12/23 Did you have a dental visit in the last 12 months?: No Did you have a dental problem in the last 6 months where you did not have access to dental care?: No Was dental information given to patient?: Patient has dentist HPI Anxiety follow-up HPI Details Patient comes in today for his follow up visit States that he feels okay He denies any headaches or dizziness Denies any chest pains, no SOB No nausea/vomiting, no abdominal pain No change in bowel habits noted Adds that he has been breaking out in some itchy rash recently over his lower abdomen and on his legs and would like to get something to help clear up his rash [facility] Medical History Overweight (BMI 25.0-29.9) Vitamin D deficiency Pure hypercholesterolemia Umbilical hernia Right inguinal hernia Obesity (BMI 30-39.9) Varicocele Insomnia Anxiety Attention deficit disorder Surgical History H/O colonoscopy History of umbilical hernia repair (~03/27/22) History of right inguinal hernia repair Status post pericardial cyst excision (~08/13/16) Family History Father Coronary artery disease Hypertension Brother Hyperlipidemia Social History Housing: House Alcohol intake: never Patient Tobacco Use Status: Never used Tobacco e-Cigarette/Vaping Use: Never Used Second Hand Smoke Exposure: No service: No Current occupational status: employed Cognitive needs: No Hearing needs: No Vision needs: Yes (Glasses) Questionnaire PHQ-9 Over the last 2 weeks, how often have you been bothered by any of the following problems? 1. Little interest or pleasure in doing things: not at all 2. Feeling down, depressed, or hopeless: not at all 3. Trouble falling or staying asleep, or sleeping too much: not at all 4. Feeling tired or having little energy: not at all 5. Poor appetite or overeating: not at all 6. Feeling bad about yourself - or that you are a failure or have let yourself or your family down: not at all 7. Trouble concentrating on things, such as reading the newspaper or watching television: not at all 8. Moving or speaking so slowly that other people could have noticed. Or the opposite - being so fidgety or restless that you have been moving around a lot more than usual: not at all 9. Thoughts that you would be better off or of hurting yourself in some way: not at all Total score: 0 Depression Screening Interpretation: Negative Depression Screening Done: Yes 15909 - PHQ-9 Billing: Yes Source: Developed by Drs. Bk Reyez, Tanya Diaz, Earnest Bauer and colleagues, with an educational pierce from [employer]. Thrive Questionnaire Date Thrive assessed: 07/12/23 I am a: Patient What is your living situation today?: I have a steady place to live Within the past 12 months, did the food you bought not last and you didn't have the money to get more?: Never true Within the past 12 months, did you worry whether your food would run out before you got money to buy more?: Never true Do you have trouble paying for medicines?: No Do you have trouble getting transportation to medical appointments?: No Do you have trouble paying your heating and electricity bill?: No Do you have trouble taking care of your child, family member or friend?: No Do you have trouble with day-to-day activities such as bathing, preparing meals, shopping, managing finances, etc.?: No Are you currently unemployed and looking for a job?: No Are you interested in more education?: No Currently or been in a relationship where the following occur: no concerns reported THRIVE Score: 0 AUDIT C Alcohol Use Questionnaire (AUDIT-C) 1. How often do you have a drink containing alcohol?: Never 3. How often do you have six or more drinks on one occasion?: Never Total Score: 0 Score Reviewed/Action Taken: Yes TAMARA-7 AMB Questionnaire TAMARA-7 Date TAMARA - 7 assessed: 07/12/23 Feeling nervous, anxious, or on edge: 0 = Not at all Not being able to stop or control worryin = Not at all Worrying too much about different things: 0 = Not at all Trouble relaxin = Not at all Being so restless that it is hard to sit still: 0 = Not at all Becoming easily annoyed or irritable: 0 = Not at all Feeling afraid as if something awful might happen: 0 = Not at all Total TAMARA-7 score (0-4 normal; 5-9 mild; 10-14 moderate; 15-21 severe): 0 Source: Developed by Drs. Bk Reyez, Tanya Diaz, Earnest Bauer and colleagues, with an educational pierce from [employer]. Review of Systems Const Denies chills, Denies fatigue and Denies fever(s) ENT Denies dysphagia, Denies otalgia, Denies neck pain, Denies odynophagia and Denies sore throat Card Denies chest pain, Denies irregular heart rhythm, Denies palpitations and Denies dyspnea Resp Denies chest congestion, Denies cough and Denies dyspnea GI Denies abdominal pain, Denies constipation, Denies dysphagia, Denies heartburn, Denies diarrhea, Denies nausea, Denies odynophagia and Denies vomiting Denies difficulty urinating, Denies dysuria and Denies urinary frequency Musc Denies back pain, Denies arthralgias and Denies neck pain Skin/Breast Reports rash (pruritic rash on and off - see HPI for details) Psych Reports anxiety and Reports depression Endo Denies fatigue and Denies palpitations Physical exam (Primary Care) Vital Signs: Last Vital Signs Pulse 76 07/12/23 16:15 BP 100/72 07/12/23 16:15 Pulse Ox 98 07/12/23 16:15 Oxygen Delivery Method Room Air 07/12/23 16:15 BMI result Body Mass Index 30.1 Tobacco/Smoking Status: Tobacco use Status Tobacco use date assessed 07/12/23 07/12/23 16:20 Patient Tobacco Use Status Never used Tobacco 07/12/23 16:20 e-Cigarette/Vaping Use Never Used 07/12/23 16:20 PHQ-9: PHQ-9 Score PHQ-9: Total score 0 07/12/23 16:50 Depression Screening Interpretation: Negative Thrive Assessment: Date of Thrive Assessment Date Thrive assessed 07/12/23 07/12/23 16:20 Currently or been in a relationship where the following occur: no concerns reported Const General: no acute distress and alert HENMT Ears: TM's normal bilaterally and EAC's normal Throat: Yes posterior oropharynx normal and Yes tonsils normal (no TP congestion) Neck Neck: Yes supple and No lymphadenopathy Thyroid: Thyroid normal Resp Auscultation: clear to auscultation bilaterally, no rales and no wheezes Cardio Rate: regular rate Rhythm: regular rhythm Heart sounds: no murmurs GI Palpation (GI): Soft to palpation and nontender Auscultation: normal bowel sounds General: Yes no CVA tenderness Back/Spine/Pelvis Back: no CVA tenderness Thoracic/Lumbar Spine: No lumbar spinal tenderness Skin Rashes: no rashes Extrem General: Yes no clubbing, cyanosis or edema Results Reviewed Results Reviewed: Laboratory Tests 12/30/22 12/30/22 08:25 08:35 WBC 5.3 Hgb 13.1 L Hct 38.4 L Plt Count 217 Sodium 140 Potassium 4.0 Creatinine 0.84 Estimated GFR > 60 Fasting Glucose 84 Calcium 9.6 AST 22 ALT 21 Triglycerides 121 Cholesterol 207 H LDL Cholesterol, Calc 137 H HDL Cholesterol 46 25-OH Vitamin D Total 24.9 TSH 1.43 Ur Specific [place] >= 1.030 H Urine Protein Negative Urine Glucose (UA) Negative Urine Blood Negative Urine Nitrite Negative Ur Leukocyte Esterase Negative Coding Level of Care Code Est Pt Level 4 (26356) Diagnoses Pure hypercholesterolemia E78.00 Vitamin D deficiency E55.9 Dermatitis L30.9 Anxiety F41.9 Obesity (BMI 30-39.9) E66.9
[2023-07-12 16:15] VITALS: BP 100/72; PULSE 76; O2SAT 98; BMI 30.1
== END 2023-07-12 16:58 | disposition home or self-care (01) ==
PROVIDERS: PCP Internal Medicine; Visit Provider Internal Medicine
DX: E78.00 Pure hypercholesterolemia, unspecified (principal); E55.9 Vitamin D deficiency, unspecified; L30.9 Dermatitis, unspecified; F41.9 Anxiety disorder, unspecified; E66.9 Obesity, unspecified
CPT/HCPCS: 99499

== ENCOUNTER 2024-01-04 08:31 | Outpatient (REF) | payer BC, SELFPAY ==
[2024-01-04 08:41] LABS: MANUAL DIFF FLAG NO
[2024-01-04 09:23] LABS: Basophils Absolute Auto 0.1 X10*3/uL (0.0-0.2); Basophils Percent Auto 1.2 % (0-2); Eosinophils Absolute Auto 0.2 X10*3/uL (0.0-0.4); Eosinophils Percent Auto 4.4 % (0-4); Hematocrit 38.4 % (42.0-52.0); Hemoglobin 13.1 g/dl (14.0-18.0); Imm Gran Abs Auto 0.01 X10*3/uL (0.00-0.03); Imm Gran Pct Auto 0.2 % (0.0-0.4); Lymphocytes Absolute Auto 1.7 X10*3/uL (1.2-4.9); Lymphocytes Percent Auto 34.9 % (20-40); Mean Corpuscular HGB Conc 34.1 g/dl (31.0-36.0); Mean Corpuscular Hemoglobin 30.2 pg (27.0-33.0); Mean Corpuscular Volume 88.5 fL (80.0-98.0); Mean Platelet Volume 8.6 fL (9.4-12.4); Monocytes Absolute Auto 0.7 X10*3/uL (0.1-1.2); Monocytes Percent Auto 13.3 % (2-11); Neutrophils Absolute Auto 2.3 x10*3/uL (2.0-8.3); Platelet Count 207 X10*3/uL (160-400); Red Blood Count 4.34 X10*6/uL (4.60-5.80); Red Cell Distribution Width 12.7 % (11.0-16.0)
[2024-01-04 09:48] LABS: Appearance Urine Clear; Color Urine Yellow; Glucose Urine UA Negative (Negative); Leukocyte Esterase Urine Negative (Negative); Nitrite Urine Negative (Negative); PH 5.5 (5.0-9.0); Specific Gravity - Urine >= 1.030 (1.005-1.025); Urine Blood Negative (Negative); Urine Ketones Negative (Negative); Urine Protein Negative (Neg-Trace)
[2024-01-04 10:00] LABS: Alanine Aminotransferase 19 U/L (0-40); Albumin Level 4.4 g/dL (3.5-5.0); Alkaline Phosphatase 90 U/L (39-117); Anion Gap 10 (12-20); Aspartate Amino Transferase 20 U/L (5-37); Bilirubin Total 0.7 mg/dL (0.0-1.0); Blood Urea Nitrogen 15 mg/dL (9-16); Calcium 9.4 mg/dL (8.4-10.2); Carbon Dioxide 28 mmol/L (22-29); Chloride 107 mmol/L (96-108); Cholesterol 240 mg/dL (<200); Estimated Glomerular Filt Rate > 60; Glucose Fasting 85 mg/dL (60-99); HDL Cholesterol 55 mg/dL (>40); LDL Cholesterol Calculated 168 mg/dL (<100); Potassium 3.8 mmol/L (3.3-5.1); Sodium 141 mmol/L (135-145); Total Protein 7.7 g/dL (6.5-8.0); Triglycerides 89 mg/dL (<150)
[2024-01-04 10:09] LABS: Prostate Specific Antigen Scr 0.49 ng/mL (<0.05-4.0)
[2024-01-04 10:22] LABS: TSH reflex Free T4 2.34 uIU/mL (0.32-4.0); Vitamin D 25-OH Total 29.9 ng/mL (>30)
== END 2024-01-04 08:32 | disposition home or self-care (01) ==
LOC: HO.LAB 08:31
PROVIDERS: PCP Internal Medicine; Visit Provider Internal Medicine
DX: Z00.00 Encounter for general adult medical examination without abnormal findings (principal); E55.9 Vitamin D deficiency, unspecified; E78.00 Pure hypercholesterolemia, unspecified; D64.9 Anemia, unspecified; R30.0 Dysuria; Z12.5 Encounter for screening for malignant neoplasm of prostate
CPT/HCPCS: 36415; 80053; 80061; 81003; 82306; 84153; 84443; 85025

== ENCOUNTER 2024-01-12 12:34 | Outpatient (AMB) | payer BC, SELFPAY ==
[2024-01-12 12:36] VITALS: BP 110/80; PULSE 62; O2SAT 98; BMI 29.0
--- NOTE | 2024-01-12 12:36 | A.OFFPC_ITS ---
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: No Accompanied by: Self / Same As Patient Allergies No Known Allergies Allergy (Verified 01/12/24 12:55) Medication List - Last Reconciled 01/12/24 by Bobo Avilez MD lorazepam 0.5 mg PO BID PRN 30 days triamcinolone acetonide 0.1% 1 appl topical TID PRN Tobacco use date assessed: 01/12/24 Dental Screening Dental Screen Date: 01/12/24 Did you have a dental visit in the last 12 months?: No Did you have a dental problem in the last 6 months where you did not have access to dental care?: No Was dental information given to patient?: Patient has dentist HPI annual PE HPI Details Patient comes in today for his annual physical examination States that he has been feeling stressed/anxious and also somewhat depressed lately - cites his 's ongoing health issues and increased stress at work, mostly due to personnel conflicts States that 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[facility] with increasing GI symptoms and is currently waiting for CT to be done He denies any headaches or dizziness Denies any chest pains, no SOB No nausea/vomiting, no abdominal pain No change in bowel habits noted He denies any acute urinary symptoms He had his follow up labs done last week - to discuss his results He underwent his screening colonoscopy last year on 02/25/2023 - was advised that his colonoscopy was normal and his next recommended procedure would be in 10 yrs (2032) [facility] Medical History (Updated 01/12/24 @ 15:31 by Bobo Avilez MD) Overweight (BMI 25.0-29.9) Vitamin D deficiency Pure hypercholesterolemia Umbilical hernia Right inguinal hernia Obesity (BMI 30-39.9) Varicocele Insomnia Anxiety Attention deficit disorder Surgical History H/O colonoscopy History of umbilical hernia repair (~03/27/22) History of right inguinal hernia repair Status post pericardial cyst excision (~08/13/16) Family History Father Coronary artery disease Hypertension Brother Hyperlipidemia Social History Housing: House Alcohol intake: never Patient Tobacco Use Status: Never used Tobacco e-Cigarette/Vaping Use: Never Used Second Hand Smoke Exposure: No service: No Current occupational status: employed Cognitive needs: No Hearing needs: No Vision needs: Yes (Glasses) Questionnaire PHQ-9 Over the last 2 weeks, how often have you been bothered by any of the following problems? 1. Little interest or pleasure in doing things: more than half the days 2. Feeling down, depressed, or hopeless: more than half the days 3. Trouble falling or staying asleep, or sleeping too much: more than half the days 4. Feeling tired or having little energy: more than half the days 5. Poor appetite or overeating: more than half the days 6. Feeling bad about yourself - or that you are a failure or have let yourself or your family down: not at all 7. Trouble concentrating on things, such as reading the newspaper or watching television: more than half the days 8. Moving or speaking so slowly that other people could have noticed. Or the opposite - being so fidgety or restless that you have been moving around a lot more than usual: not at all 9. Thoughts that you would be better off or of hurting yourself in some way: not at all Total score: 12 Depression Screening Interpretation: Positive Depression Screening Follow-up: Existing condition and Declines treatment Depression Screening Done: Yes 90002 - PHQ-9 Billing: Yes Source: Developed by Drs. Bk Reyez, Tanya Diaz, Earnest Bauer and colleagues, with an educational pierce from [employer]. Thrive Questionnaire Date Thrive assessed: 01/12/24 I am a: Patient What is your living situation today?: I have a steady place to live Within the past 12 months, did the food you bought not last and you didn't have the money to get more?: I choose not to answer this question Within the past 12 months, did you worry whether your food would run out before you got money to buy more?: Never true Do you have trouble paying for medicines?: I choose not to answer this question Do you have trouble getting transportation to medical appointments?: No Do you have trouble paying your heating and electricity bill?: I choose not to answer this question Do you have trouble taking care of your child, family member or friend?: I choose not to answer this question Do you have trouble with day-to-day activities such as bathing, preparing meals, shopping, managing finances, etc.?: No Are you currently unemployed and looking for a job?: No Are you interested in more education?: I choose not to answer this question Please select the resources that you would like help with: None Currently or been in a relationship where the following occur: No concerns reported THRIVE Score: 0 AUDIT C Alcohol Use Questionnaire (AUDIT-C) 1. How often do you have a drink containing alcohol?: Monthly or less 2. How many drinks containing alcohol do you have on a typical day when you are drinking?: 1 or 2 3. How often do you have six or more drinks on one occasion?: Never Total Score: 1 Score Reviewed/Action Taken: Yes TAMARA-7 AMB Questionnaire TAMARA-7 Date TAMARA - 7 assessed: 01/12/24 Feeling nervous, anxious, or on edge: 2 = More than half the days Not being able to stop or control worryin = Nearly every day Worrying too much about different things: 3 = Nearly every day Trouble relaxin = Nearly every day Being so restless that it is hard to sit still: 2 = More than half the days Becoming easily annoyed or irritable: 2 = More than half the days Feeling afraid as if something awful might happen: 0 = Not at all Total TAMARA-7 score (0-4 normal; 5-9 mild; 10-14 moderate; 15-21 severe): 15 Source: Developed by Drs. Bk Reyez, Tanya Diaz, Earnest Bauer and colleagues, with an educational pierce from [employer]. Review of Systems Const Denies chills, Denies fatigue, Denies fever(s), Denies headache(s), Denies malaise and Denies weakness Eyes Denies blurry vision, Denies change in vision, Denies irritation and Denies itchy eyes ENT Denies dysphagia, Denies dizziness, Denies otalgia, Denies headache(s), Denies nasal congestion, Denies neck pain, Denies odynophagia and Denies sore throat Card Denies chest pain, Denies rapid heart rate, Denies irregular heart rhythm, Denies palpitations and Denies dyspnea Resp Denies chest congestion, Denies cough, Denies dyspnea and Denies wheezing GI Denies abdominal pain, Denies bloating, Denies constipation, Denies dysphagia, Denies heartburn, Denies diarrhea, Denies nausea, Denies odynophagia and Denies vomiting Denies hematuria, Denies difficulty urinating, Denies dysuria, Denies urinary frequency and Denies urinary urgency Musc Denies back pain, Denies arthralgias, Denies joint swelling, Denies muscle weakness and Denies neck pain Skin/Breast Denies change in pigmentation, Denies lesions, Denies rash and Denies unusual bruising Neuro Denies dizziness, Denies headache(s), Denies paresthesias and Denies weakness Psych Reports as per HPI, Reports anxiety and Reports depression Endo Denies fatigue and Denies palpitations Aller/Immun Denies itchy eyes and Denies wheezing Physical exam (Primary Care) Vital Signs: Last Vital Signs Pulse 62 01/12/24 12:36 BP 110/80 01/12/24 12:36 Pulse Ox 98 01/12/24 12:36 Oxygen Delivery Method Room Air 01/12/24 12:36 BMI result Body Mass Index 29.0 Tobacco/Smoking Status: Tobacco use Status Tobacco use date assessed 01/12/24 01/12/24 12:39 Patient Tobacco Use Status Never used Tobacco 01/12/24 12:39 e-Cigarette/Vaping Use Never Used 01/12/24 12:39 PHQ-9: PHQ-9 Score PHQ-9: Total score 12 01/12/24 12:57 Depression Screening Interpretation: Positive Depression Screening Follow-up: Existing condition and Declines treatment Thrive Assessment: Date of Thrive Assessment Date Thrive assessed 01/12/24 01/12/24 12:39 Currently or been in a relationship where the following occur: No concerns reported Const General: no acute distress, alert and awake Orientation/consciousness: patient oriented x3 HENMT Head: Yes normocephalic and Yes atraumatic Ears: external ears normal, TM's normal bilaterally and EAC's normal General nose exam: No nasal discharge present Face and sinus: Yes normal facial exam and Yes sinuses nontender Teeth and gingiva: dentition normal Throat: Yes posterior oropharynx normal and Yes tonsils normal (no TP congestion) Eyes Eyelids: Yes eyelids normal Conjunctivae: conjunctivae normal Pupils: Equal, round and reactive pupils present EOM: EOMs intact bilaterally Neck Neck: Yes no lymphadenopathy and Yes supple Thyroid: Thyroid normal Resp Auscultation: clear to auscultation bilaterally, no rales and no wheezes Cardio Rate: regular rate Rhythm: regular rhythm Heart sounds: no murmurs GI Palpation (GI): Soft to palpation, nontender and No hepatosplenomegaly present Auscultation: normal bowel sounds General: Yes no CVA tenderness Back/Spine/Pelvis Back: no CVA tenderness Thoracic/Lumbar Spine: thoracic and lumbar spine normal to inspection Skin Lesions: no lesions Rashes: no rashes Neuro General: patient oriented x3, moves all extremities, no focal motor deficits and CN's II-XI intact bilaterally Cranial nerves: Yes Equal, round and reactive pupils present Cognition (Neuro): normal cognition Gait exam (Neuro): Normal gait present Extrem General: Yes no clubbing, cyanosis or edema Office Procedures Flu Questionnaire Does the patient have a severe egg allergy?: No Immunizations Fluarix Triv [id number] (PF) 45 mcg (15 mcg x 3)/0.5 mL IM syringe Performing Provider: Bobo Avilez MD Performing Location: [facility] Documented (not given) by: NANCY Carmen on 01/12/24 13:08 Reason Not Given: Not Given Results Reviewed Results Reviewed: Laboratory Tests 12/30/22 01/04/24 08:25 08:40 WBC 5.0 Hgb 13.1 L Hct 38.4 L Plt Count 207 Sodium 141 Potassium 3.8 Creatinine 0.83 Estimated GFR > 60 Fasting Glucose 85 Calcium 9.4 AST 20 ALT 19 Triglycerides 89 Cholesterol 207 H 240 H LDL Cholesterol, Calc 137 H 168 H HDL Cholesterol 55 PSA Screen 0.49 25-OH Vitamin D Total 29.9 L TSH 2.34 Ur Specific [place] >= 1.030 H Urine Protein Negative Urine Glucose (UA) Negative Urine Blood Negative Urine Nitrite Negative Ur Leukocyte Esterase Negative Coding Level of Care Code Est Pt Prev Care 40-64y(46509) Diagnoses Annual physical exam Z00.00 Pure hypercholesterolemia E78.00 Vitamin D deficiency E55.9 Anxiety F41.9 Depression, unspecified depression type F32.A Depression Type: unspecified Overweight (BMI 25.0-29.9) E66.3 Assessment & Plan Assessment & Plan (1) Annual physical exam: Code(s): Z00.00 - Encounter for general adult medical examination without abnormal findings Category: Medical Plan: Results of his labs done last week reviewed and discussed with patient He is currently up-to-date with his cancer screening - had his screening colonoscopy done last year on 02/25/2023 and was recommended for his next colonoscopy in 10 yrs (2032) (2) Pure hypercholesterolemia: Code(s): E78.00 - Pure hypercholesterolemia, unspecified Category: Medical Plan: Patient is advised that his total and LDL cholesterol levels have increased from previous on his recent labs Reinforced low cholesterol diet - low cholesterol diet info provided to the patient from the office today and hopefully patient can make some positive changes and get his cholesterol levels improved without resorting to medications, which is an option later on if he is not successful Will have patient recheck his labs and fasting lipids in 6 months for follow up (3) Vitamin D deficiency: Code(s): E55.9 - Vitamin D deficiency, unspecified Category: Medical Plan: Improving - continue OTC Vitamin D3 2000 units QD (4) Anxiety: Code(s): F41.9 - Anxiety disorder, unspecified Category: Medical Plan: Continue Lorazepam 0.5 mg BID PRN - Rx refilled Have discussed with patient that his recently increasing anxiety and depression are not surprisingly mostly related to concerns regarding his 's ongoing multiple health issues as well as interpersonal conflicts that he has been experiencing at his place of work recently Have offered to refer him to psychiatry for therapy and counseling and/or start him on a trial of Rx to help with his mood but patient declined both States that he will just try to figure it out on his own for now and he will call for referral if he decides to choose to do that later on States that his Lorazepam helps although he tries not to take it all the time (5) Depression: Code(s): F32.A - Depression, unspecified Category: Medical Qualifiers: Depression Type: unspecified Qualified Code(s): F32.A - Depression, unspecified Plan: Have advised patient that his recent depression are also stemming mostly from his concerns and frustrations as mentioned above, mainly involving his 's multiple health issues and his recent workplace interpersonal conflicts He has declined referral to psychiatry and offer to start him on some Rx but is aware that he can call at any time if he changes his mind about these options (6) Overweight (BMI 25.0-29.9): Code(s): E66.3 - Overweight Category: Medical Plan: Reinforced diet/exercise as tolerated/lose weight Plan Follow up in 6 months Orders: Orders Lipid Panel 6 Months E78.00 - Pure hypercholesterolemia, unspecified Vitamin D 25-OH Total 6 Months E55.9 - Vitamin D deficiency, unspecified Complete Blood Count Auto Diff 6 Months D64.9 - Anemia, unspecified Influenza [id number] Immunization Today Z23 - Encounter for immunization Comprehensive [place]. Panel Fast 6 Months E78.00 - Pure hypercholesterolemia, unspecified Medications: Refilled lorazepam 0.5 mg PO BID 30 days PRN 60 tabs 0RF anxiety
== END 2024-01-12 13:11 | disposition home or self-care (01) ==
PROVIDERS: PCP Internal Medicine; Visit Provider Internal Medicine
DX: Z00.00 Encounter for general adult medical examination without abnormal findings (principal); E78.00 Pure hypercholesterolemia, unspecified; E55.9 Vitamin D deficiency, unspecified; F41.9 Anxiety disorder, unspecified; F32.A Depression, unspecified; E66.3 Overweight; Z23 Encounter for immunization

== ENCOUNTER → 2024-01-12 12:34 | Outpatient (BNVA) | payer BC, SELFPAY | PROVIDERS: PCP Internal Medicine; Visit Provider Internal Medicine | DX: Z00.00 Encounter for general adult medical examination without abnormal findings (principal); E78.00 Pure hypercholesterolemia, unspecified; E55.9 Vitamin D deficiency, unspecified; F41.9 Anxiety disorder, unspecified; F32.A Depression, unspecified; E66.3 Overweight; Z68.29 Body mass index [BMI] 29.0-29.9, adult; Z79.899 Other long term (current) drug therapy; Z28.21 Immunization not carried out because of patient refusal | CPT/HCPCS: 90471; 96127 ==

== ENCOUNTER 2024-08-24 08:27 | Outpatient (REF) | payer BC, SELFPAY ==
[2024-08-24 09:43] LABS: MANUAL DIFF FLAG NO
--- OUTSIDE RECORDS SUMMARY | 2024-08-24 10:21 | XMS_ITS | Clinical Summary ---
Author Organization [facility] Address [address] [place] [address] Care Team Providers Care Terrazzo Tile Maker Name Role Phone Unavailable Primary Care Provider Unavailabl e Medical History Medical History Date Comments Attention deficit disorder w ith hyperactivity(314.01) DX:Attention deficit disorde r with hyperactivity(314.01) Undiagnosed cardiac murmurs DX:U ndiagnosed cardiac murmurs Family History Medical History Relation Name Comments Hyperlipidemia Brother 1 Heart attack Father has had 7-8 hea rt attacks and 6-7 stents Hyperlipidemia Father Alcohol/Drug Maternal Grandmother alcohol Stroke Paternal Grandmother Relation Name Status Comments Brother 1 Brother 2 Alive 34 year old, hy percholest Brother 3 Alive 19 year brother , healthy (ADHD) Father Alive Maternal Grandfather Maternal Grandmother alcohol ic Mother Alive Paternal Grandfather heart p roblems Paternal Grandmother stroke Sister Alive 1 sister age 3636 years old, healthy Son Alive 1 son age 3 Cristian pradhan Social History Tobacco Use Types Packs/Day Years Used Date Smoking Tobacco: Never Alcohol Use Standard Drinks/Week Comments Not Asked 0 (1 standard drink = 0.6 oz pur e alcohol) Sex and Gender Information Value Date Recorded Sex Assigned at Not on file Legal Sex Male 12:05 AM EST Gender Identity Not on file Sexual Orientation Not on file Obstetrics History Plan of Treatment Health Maintenance Due Date Last Done Comments DTaP,Tdap,and Td Vaccines (1 - Tdap) 10/16/1995 Hepatitis B Vaccines (1 of 3 - 19+ 3-dose series) 10/16/1995 COVID-19 Vaccine ( - 2023-2 5 season) 2023 Influenza Vaccine (Season Ended) 2024 HIB Vaccines Aged Out No longer eligi ble based on patient's age to complete this topic HPV Vaccines Aged Out No longer eligi ble based on patient's age to complete this topic Hepatitis A Vaccines Aged Out No long er eligible based on patient's age to complete this topic IPV Vaccines Aged Out No longer eligi ble based on patient's age to complete this topic MMR Vaccines Aged Out No longer eligi ble based on patient's age to complete this topic Meningococcal ACWY Vaccine Aged Out N o longer eligible based on patient's age to complete this topic Meningococcal B Vaccine Aged Out No l onger eligible based on patient's age to complete this topic Pneumococcal Vaccine: Pediat rics (0 to 5 Years) and At-Risk Patients (6 to 64 Years) Aged Out No longer eligible b ased on patient's age to complete this topic RSV Immunization Patients Un ricardo 20 months Aged Out No longer eligible b ased on patient's age to complete this topic Varicella Vaccines Aged Out No longer eligible based on patient's age to complete this topic
[2024-08-24 10:43] LABS: Basophils Percent Auto 0.9 % (0-2); Eosinophils Absolute Auto 0.2 X10*3/uL (0.0-0.4); Eosinophils Percent Auto 3.9 % (0-4); Hematocrit 40.4 % (42.0-52.0); Hemoglobin 14.1 g/dl (14.0-18.0); Imm Gran Abs Auto 0.02 X10*3/uL (0.00-0.03); Imm Gran Pct Auto 0.5 % (0.0-0.4); Lymphocytes Absolute Auto 1.7 X10*3/uL (1.2-4.9); Mean Corpuscular HGB Conc 34.9 g/dl (31.0-36.0); Mean Corpuscular Hemoglobin 30.6 pg (27.0-33.0); Mean Corpuscular Volume 87.6 fL (80.0-98.0); Mean Platelet Volume 8.8 fL (9.4-12.4); Monocytes Absolute Auto 0.6 X10*3/uL (0.1-1.2); Monocytes Percent Auto 14.6 % (2-11); Neutrophils Absolute Auto 1.8 x10*3/uL (2.0-8.3); Neutrophils Percent Auto 42.1 % (45-73); Platelet Count 243 X10*3/uL (160-400); Red Blood Count 4.61 X10*6/uL (4.60-5.80); Red Cell Distribution Width 12.8 % (11.0-16.0); White Blood Count 4.4 X10*3/uL (4.8-10.8)
[2024-08-24 10:57] LABS: Estimated Average Glucose 117 mg/dL; Hemoglobin A1c % 5.7 % (<6.0)
[2024-08-24 11:29] LABS: Alanine Aminotransferase 29 U/L (0-40); Albumin Level 4.4 g/dL (3.5-5.0); Alkaline Phosphatase 92 U/L (39-117); Anion Gap 12 (12-20); Aspartate Amino Transferase 26 U/L (5-37); Bilirubin Total 0.4 mg/dL (0.0-1.0); Blood Urea Nitrogen 12 mg/dL (9-16); Calcium 9.7 mg/dL (8.4-10.2); Carbon Dioxide 25 mmol/L (22-29); Chloride 106 mmol/L (96-108); Cholesterol 252 mg/dL (<200); Estimated Glomerular Filt Rate > 60; Glucose Fasting 88 mg/dL (60-99); HDL Cholesterol 51 mg/dL (>40); LDL Cholesterol Calculated 166 mg/dL (<100); Potassium 4.2 mmol/L (3.3-5.1); Sodium 139 mmol/L (135-145); Total Protein 7.7 g/dL (6.5-8.0); Triglycerides 179 mg/dL (<150)
[2024-08-24 11:36] LABS: TSH reflex Free T4 1.45 uIU/mL (0.32-4.0); Vitamin D 25-OH Total 19.3 ng/mL (>30)
[2024-08-24 11:36] LABS: Appearance Urine Clear; Color Urine Yellow; Glucose Urine UA Negative (Negative); Leukocyte Esterase Urine Negative (Negative); Nitrite Urine Negative (Negative); PH 6.5 (5.0-9.0); Specific Gravity - Urine 1.015 (1.005-1.025); Urine Blood Negative (Negative); Urine Ketones Negative (Negative); Urine Protein Negative (Neg-Trace)
== END 2024-08-24 08:28 | disposition home or self-care (01) ==
LOC: HO.LAB 08:27
PROVIDERS: PCP Internal Medicine; Visit Provider Internal Medicine
DX: E78.00 Pure hypercholesterolemia, unspecified (principal); E55.9 Vitamin D deficiency, unspecified; D64.9 Anemia, unspecified; R73.9 Hyperglycemia, unspecified; R30.0 Dysuria; F41.9 Anxiety disorder, unspecified; F32.A Depression, unspecified; E66.9 Obesity, unspecified; Z68.30 Body mass index [BMI] 30.0-30.9, adult; Z71.3 Dietary counseling and surveillance
CPT/HCPCS: 36415; 80053; 80061; 81003; 82306; 83036; 84443; 85025; 96127

== ENCOUNTER 2024-08-24 08:27 | Outpatient (AMB) | payer BC, SELFPAY ==
[2024-08-24 08:33] VITALS: BP 112/76; PULSE 85; O2SAT 97; BMI 30.9
--- NOTE | 2024-08-24 08:33 | A.OFFPC_ITS ---
Vital Signs 08/24/24 08:33 Height 6 ft 3 in Weight 247 lb 6 oz BMI 30.9 BP 112/76 Blood Pressure Location Lt brachial Position Sitting Pulse 85 Pulse Source Pulse Oximeter Pulse Oximetry (%) 97 Oxygen Delivery Method Room Air Intake Visit Reasons: Hyperlipidemia Hand Suture Winder Required: No Accompanied by: Self / Same As Patient Allergies No Known Allergies Allergy (Verified 08/24/24 09:13) Medication List - Last Reconciled 08/24/24 by Bobo Avilez MD lorazepam 0.5 mg PO BID PRN 30 days triamcinolone acetonide 0.1% 1 appl topical TID PRN Tobacco use date assessed: 08/24/24 Dental Screening Dental Screen Date: 08/24/24 Did you have a dental visit in the last 12 months?: No Did you have a dental problem in the last 6 months where you did not have access to dental care?: No Was dental information given to patient?: Patient has dentist HPI Hyperlipidemia HPI Details Patient comes in today for his follow up visit States that he feels okay He denies any headaches or dizziness Denies any chest pains, no SOB No nausea/vomiting, no abdominal pain No change in bowel habits noted Needs his Lorazepam Rx refilled today He was not able to get his follow up labs done prior to his visit today PENDING SALE TO [facility] Medical History Overweight (BMI 25.0-29.9) Vitamin D deficiency Pure hypercholesterolemia Umbilical hernia Right inguinal hernia Obesity (BMI 30-39.9) Varicocele Insomnia Anxiety Attention deficit disorder Surgical History H/O colonoscopy History of umbilical hernia repair (~03/27/22) History of right inguinal hernia repair Status post pericardial cyst excision (~08/13/16) Family History Father Coronary artery disease Hypertension Brother Hyperlipidemia Social History Housing: House Alcohol intake: never Patient Tobacco Use Status: Never used Tobacco e-Cigarette/Vaping Use: Never Used Second Hand Smoke Exposure: No service: No Current occupational status: employed Cognitive needs: No Hearing needs: No Vision needs: Yes (Glasses) Questionnaire PHQ-9 Over the last 2 weeks, how often have you been bothered by any of the following problems? 1. Little interest or pleasure in doing things: more than half the days 2. Feeling down, depressed, or hopeless: not at all 3. Trouble falling or staying asleep, or sleeping too much: more than half the days 4. Feeling tired or having little energy: more than half the days 5. Poor appetite or overeating: not at all 6. Feeling bad about yourself - or that you are a failure or have let yourself or your family down: not at all 7. Trouble concentrating on things, such as reading the newspaper or watching television: not at all 8. Moving or speaking so slowly that other people could have noticed. Or the opposite - being so fidgety or restless that you have been moving around a lot more than usual: not at all 9. Thoughts that you would be better off or of hurting yourself in some way : not at all Total score: 6 Depression Screening Interpretation: Positive Depression Screening Follow-up: Existing condition and Follow-up Visit Requested Depression Screening Done: Yes 09581 - PHQ-9 Billing: Yes Source: Developed by Drs. Bk Reyez, Tanya Diaz, Earnest Bauer and colleagues, with an educational pierce from [employer]. Thrive Questionnaire Date Thrive assessed: 08/24/24 I am a: Patient What is your living situation today?: I have a steady place to live Within the past 12 months, did the food you bought not last and you didn't have the money to get more?: I choose not to answer this question Within the past 12 months, did you worry whether your food would run out before you got money to buy more?: I choose not to answer this question Do you have trouble paying for medicines?: No Do you have trouble getting transportation to medical appointments?: No Do you have trouble paying your heating and electricity bill?: I choose not to answer this question Do you have trouble taking care of your child, family member or friend?: I choose not to answer this question Do you have trouble with day-to-day activities such as bathing, preparing meals, shopping, managing finances, etc.?: I choose not to answer this question Are you currently unemployed and looking for a job?: No Are you interested in more education?: I choose not to answer this question Please select the resources that you would like help with: None Currently or been in a relationship where the following occur: No concerns reported THRIVE Score: 0 AUDIT C Alcohol Use Questionnaire (AUDIT-C) 1. How often do you have a drink containing alcohol?: Monthly or less 2. How many drinks containing alcohol do you have on a typical day when you are drinking?: 1 or 2 3. How often do you have six or more drinks on one occasion?: Never Total Score: 1 Score Reviewed/Action Taken: Yes TAMARA-7 AMB Questionnaire TAMARA-7 Date TAMARA - 7 assessed: 08/24/24 Feeling nervous, anxious, or on edge: 2 = More than half the days Not being able to stop or control worryin = Several days Worrying too much about different things: 1 = Several days Trouble relaxin = Nearly every day Being so restless that it is hard to sit still: 2 = More than half the days Becoming easily annoyed or irritable: 2 = More than half the days Feeling afraid as if something awful might happen: 2 = More than half the days Total TAMARA-7 score (0-4 normal; 5-9 mild; 10-14 moderate; 15-21 severe): 13 Source: Developed by Drs. Bk Reyez, Tanya Diaz, Earnest Bauer and colleagues, with an educational pierce from [employer]. Review of Systems Const Denies chills, Denies fatigue and Denies fever(s) ENT Denies dysphagia, Denies otalgia, Denies neck pain, Denies odynophagia and Denies sore throat Card Denies chest pain, Denies irregular heart rhythm, Denies palpitations and Denies dyspnea Resp Denies chest congestion, Denies cough and Denies dyspnea GI Denies abdominal pain, Denies constipation, Denies dysphagia, Denies heartburn, Denies diarrhea, Denies nausea, Denies odynophagia and Denies vomiting Denies difficulty urinating, Denies dysuria and Denies urinary frequency Musc Denies back pain, Denies arthralgias and Denies neck pain Skin/Breast Denies rash Psych Reports anxiety and Reports depression Endo Denies fatigue and Denies palpitations Physical exam (Primary Care) Vital Signs: Last Vital Signs Pulse 85 08/24/24 08:33 BP 112/76 08/24/24 08:33 Pulse Ox 97 08/24/24 08:33 Oxygen Delivery Method Room Air 08/24/24 08:33 BMI result Body Mass Index 30.9 Tobacco/Smoking Status: Tobacco use Status Tobacco use date assessed 08/24/24 08/24/24 08:36 Patient Tobacco Use Status Never used Tobacco 08/24/24 08:36 e-Cigarette/Vaping Use Never Used 08/24/24 08:36 PHQ-9: PHQ-9 Score PHQ-9: Total score 6 08/24/24 08:36 Depression Screening Interpretation: Positive Depression Screening Follow-up: Existing condition and Follow-up Visit Requested Thrive Assessment: Date of Thrive Assessment Date Thrive assessed 08/24/24 08/24/24 08:36 Currently or been in a relationship where the following occur: No concerns reported Const General: no acute distress and alert HENMT Ears: TM's normal bilaterally and EAC's normal Throat: Yes posterior oropharynx normal and Yes tonsils normal (no TP angel estion) Neck Neck: Yes supple and No lymphadenopathy Thyroid: Thyroid normal Resp Auscultation: clear to auscultation bilaterally, no rales and no wheezes Cardio Rate: regular rate Rhythm: regular rhythm Heart sounds: no murmurs GI Palpation (GI): Soft to palpation and nontender Auscultation: normal bowel sounds General: Yes no CVA tenderness Back/Spine/Pelvis Back: no CVA tenderness Thoracic/Lumbar Spine: No lumbar spinal tenderness Skin Rashes: no rashes Extrem General: Yes no clubbing, cyanosis or edema Coding Level of Care Code Est Pt Level 4 (75523) Diagnoses Pure hypercholesterolemia E78.00 Vitamin D deficiency E55.9 Anxiety F41.9 Depression, unspecified depression type F32.A Depression Type: unspecified Obesity (BMI 30-39.9) E66.9 Additional Codes PHQ-9 - 01926 - PHQ-9 Billing: Yes ([id number]) Assessment & Plan Assessment & Plan (1) Pure hypercholesterolemia: Code(s): E78.00 - Pure hypercholesterolemia, unspecified Category: Medical Plan: Patient is advised that his total and LDL cholesterol levels have increased from before on his previous labs done back in December 2023 so he should try to go and get his follow up labs done JUAN M Reinforced low cholesterol diet Will have patient recheck his labs and fasting lipids again in 6 months for follow up (2) Vitamin D deficiency: Code(s): E55.9 - Vitamin D deficiency, unspecified Category: Medical Plan: Continue OTC Vitamin D3 2000 units QD (3) Anxiety: Code(s): F41.9 - Anxiety disorder, unspecified Category: Medical Plan: Continue Lorazepam 0.5 mg BID PRN Have offered to refer patient to psychiatry for therapy and counseling before and/or start him on a trial of Rx to help with his mood but patient declined both States that he is trying to get in to see psychiatry on his own and he will call for referral if he finds out he needs one States that his Lorazepam helps although he tries not to take it all the time (4) Depression: Code(s): F32.A - Depression, unspecified Category: Medical Qualifiers: Depression Type: unspecified Qualified Code(s): F32.A - Depression, un specified Plan: Patient has declined referral to psychiatry and also declined offer to start him on some Rx but is aware that he can call at any time if he changes his mind about these options Patient states that he is trying to get in to see psychiatry on his own for now (5) Obesity (BMI 30-39.9): Code(s): E66.9 - Obesity, unspecified Category: Medical Plan: Reinforced diet/exercise as tolerated/lose weight - he has gained about 15 pounds since his last visit Plan To return as scheduled in January 2025 for his next annual physical examination Orders: Orders Hemoglobin A1c Today R73.9 - Hyperglycemia, unspecified Comprehensive [place]. Panel Fast 01/10/25 E78.00 - Pure hypercholesterolemia, unspecified, Z00.00 - Encounter for general adult medical examination without abnormal findings Lipid Panel 01/10/25 E78.00 - Pure hypercholesterolemia, unspecified, Z00.00 - Encounter for general adult medical examination without abnormal findings TSH reflex Free T4 Today E78.00 - Pure hypercholesterolemia, unspecified UA CC w/rflx Micro + Cult Today R30.0 - Dysuria Complete Blood Count Auto Diff 01/10/25 D64.9 - Anemia, unspecified, Z00.00 - Encounter for general adult medical examination without abnormal findings UA CC w/rflx Micro + Cult 01/10/25 R30.0 - Dysuria, Z00.00 - Encounter for general adult medical examination without abnormal findings Prostate Specific Antigen Scr 01/10/25 Z00.00 - Encounter for general adult medical examination without abnormal findings Medications: Refilled lorazepam 0.5 mg PO BID 30 days PRN 60 tabs 0RF anxiety
== END 2024-08-24 09:28 | disposition home or self-care (01) ==
LOC: HO.HMCH 08:28
PROVIDERS: PCP Internal Medicine; Visit Provider Internal Medicine
DX: E78.00 Pure hypercholesterolemia, unspecified (principal); E55.9 Vitamin D deficiency, unspecified; Z68.30 Body mass index [BMI] 30.0-30.9, adult; E66.9 Obesity, unspecified; F41.9 Anxiety disorder, unspecified; F32.A Depression, unspecified

== ENCOUNTER 2025-01-24 13:19 | Outpatient (AMB) | payer BC, SELFPAY ==
[2025-01-24 13:33] VITALS: BP 110/80; PULSE 60; O2SAT 97; BMI 31.6
--- NOTE | 2025-01-24 13:33 | MHC.PC.OV ---
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: No Accompanied by: Self / Same As Patient Allergies No Known Allergies Allergy (Verified 01/28/25 03:52) Medication List - Last Reconciled 01/28/25 by Bobo Avilez MD lorazepam 0.5 mg PO BID PRN 30 days triamcinolone acetonide 0.1% 1 appl topical TID PRN Tobacco use date assessed: 01/24/25 Dental Screening Dental Screen Date: 01/24/25 Did you have a dental visit in the last 12 months?: No Did you have a dental problem in the last 6 months where you did not have access to dental care?: No Was dental information given to patient?: Patient has dentist HPI annual exam HPI Details Patient comes in today for his annual physical examination States that he has been experiencing recurrent umbilical and right-sided abdominal pains lately Adds that he's had a recurrent itchy and sometimes painful rash over the volar aspect of the right wrist and on a few fingers on the left hand States that he feels okay otherwise He denies any headaches or dizziness Denies any chest pains, no increased shortness of breath No nausea/vomiting and no change in bowel habits noted He denies any acute urinary symptoms He had a normal screening colonoscopy last done couple of years ago in 2022 - was recommended to have repeat colonoscopy done in 10 years (2032) He was not able to get his follow-up labs done prior to his appointment today ON LICENSE OF [facility] Medical History Overweight (BMI 25.0-29.9) Vitamin D deficiency Pure hypercholesterolemia Umbilical hernia Right inguinal hernia Obesity (BMI 30-39.9) Varicocele Insomnia Anxiety Attention deficit disorder Surgical History H/O colonoscopy History of umbilical hernia repair (~03/27/22) History of right inguinal hernia repair Status post pericardial cyst excision (~08/13/16) Family History Father Coronary artery disease Hypertension Brother Hyperlipidemia Social History Housing: House Alcohol intake: never Patient Tobacco Use Status: Never used Tobacco e-Cigarette/Vaping Use: Never Used Second Hand Smoke Exposure: No service: No Current occupational status: employed Cognitive needs: No Hearing needs: No Vision needs: Yes (Glasses) Questionnaire PHQ-9 Over the last 2 weeks, how often have you been bothered by any of the following problems? Depression Screening Interpretation: Negative Depression Screening Done: Yes Source: Developed by Drs. Bk Reyez, Tanya Diaz, Earnest Bauer and colleagues, with an educational pierce from [employer]. Thrive Questionnaire Date Thrive assessed: 08/23/24 I am a: Patient What is your living situation today?: I have a steady place to live Within the past 12 months, did the food you bought not last and you didn't have the money to get more?: I choose not to answer this question Within the past 12 months, did you worry whether your food would run out before you got money to buy more?: I choose not to answer this question Do you have trouble paying for medicines?: No Do you have trouble getting transportation to medical appointments?: No Do you have trouble paying your heating and electricity bill?: I choose not to answer this question Do you have trouble taking care of your child, family member or friend?: I choose not to answer this question Do you have trouble with day-to-day activities such as bathing, preparing meals, shopping, managing finances, etc.?: I choose not to answer this question Are you currently unemployed and looking for a job?: No Are you interested in more education?: I choose not to answer this question Please select the resources that you would like help with: None Currently or been in a relationship where the following occur: No concerns reported THRIVE Score: 0 AUDIT C Alcohol Use Questionnaire (AUDIT-C) 1. How often do you have a drink containing alcohol?: Monthly or less 2. How many drinks containing alcohol do you have on a typical day when you are drinking?: 1 or 2 3. How often do you have six or more drinks on one occasion?: Never Total Score: 1 Score Reviewed/Action Taken: Yes TAMARA-7 AMB Questionnaire TAMARA-7 Date TAMARA - 7 assessed: 08/24/24 Source: Developed by Drs. Bk Reyez, Tanya Diaz, Earnest Bauer and colleagues, with an educational pierce from [employer]. Review of Systems Const Denies chills, Denies fatigue, Denies fever(s), Denies headache(s), Denies malaise and Denies weakness Eyes Denies blurry vision, Denies change in vision, Denies irritation and Denies itchy eyes ENT Denies dysphagia, Denies dizziness, Denies otalgia, Denies headache(s), Denies nasal congestion, Denies neck pain, Denies odynophagia and Denies sore throat Card Denies chest pain, Denies rapid heart rate, Denies irregular heart rhythm, Denies palpitations and Denies dyspnea Resp Denies chest congestion, Denies cough, Denies dyspnea and Denies wheezing GI Reports abdominal pain (over the umbilical area and R side of the abdomen), Denies bloating, Denies constipation, Denies dysphagia, Denies heartburn, Denies diarrhea, Denies nausea, Denies odynophagia and Denies vomiting Denies hematuria, Denies difficulty urinating, Denies dysuria, Denies urinary frequency and Denies urinary urgency Musc Denies back pain, Denies arthralgias, Denies joint swelling, Denies muscle weakness and Denies neck pain Skin/Breast Details: (+) recurrent itchy and sometimes painful rash over the right wrist and on both hands and a few fingers Denies change in pigmentation, Denies lesions and Denies unusual bruising Neuro Denies dizziness, Denies headache(s), Denies paresthesias and Denies weakness Endo Denies fatigue and Denies palpitations Aller/Immun Denies itchy eyes and Denies wheezing Physical exam (Primary Care) Vital Signs: Last Vital Signs Pulse 60 01/24/25 13:33 BP 110/80 01/24/25 13:33 Pulse Ox 97 01/24/25 13:33 Oxygen Delivery Method Room Air 01/24/25 13:33 BMI result Body Mass Index 31.6 Tobacco/Smoking Status: Tobacco use Status Tobacco use date assessed 01/24/25 01/24/25 13:38 Patient Tobacco Use Status Never used Tobacco 01/24/25 13:38 e-Cigarette/Vaping Use Never Used 01/24/25 13:38 Depression Screening Interpretation: Negative Thrive Assessment: Date of Thrive Assessment Date Thrive assessed 08/23/24 01/24/25 13:38 Currently or been in a relationship where the following occur: No concerns reported Const General: no acute distress, alert and awake Orientation/consciousness: patient oriented x3 HENMT Head: Yes normocephalic and Yes atraumatic Ears: external ears normal, TM's normal bilaterally and EAC's normal General nose exam: No nasal discharge present Face and sinus: Yes normal facial exam and Yes sinuses nontender Teeth and gingiva: dentition normal Throat: Yes posterior oropharynx normal and Yes tonsils normal (no TP congestion) Eyes Eyelids: Yes eyelids normal Conjunctivae: conjunctivae normal Pupils: Equal, round and reactive pupils present EOM: EOMs intact bilaterally Neck Neck: Yes no lymphadenopathy and Yes supple Thyroid: Thyroid normal Resp Auscultation: clear to auscultation bilaterally, no rales and no wheezes Cardio Rate: regular rate Rhythm: regular rhythm Heart sounds: no murmurs GI Palpation (GI): Soft to palpation, Tenderness to palpation present (GI) (mild, over the umbilical area and right side of the abdomen), no guarding, not rigid, No hepatosplenomegaly present, Hernia present umbilical and No Rebound tenderness present Auscultation: normal bowel sounds General: Yes no CVA tenderness Back/Spine/Pelvis Back: no CVA tenderness Thoracic/Lumbar Spine: No lumbar spinal tenderness Skin Other: (+) few scattered erythematous rash on the volar aspect of the right wrist and also on both hands and on a few fingers bilaterally Lesions: no lesions Neuro General: patient oriented x3, moves all extremities, no focal motor deficits and CN's II-XI intact bilaterally Cranial nerves: Yes Equal, round and reactive pupils present Cognition (Neuro): normal cognition Gait exam (Neuro): Normal gait present Extrem General: Yes no clubbing, cyanosis or edema Coding Level of Care Code Est Pt Prev Care 40-64y(29088) Diagnoses Annual physical exam Z00.00 Pruritic erythematous rash L29.89 Umbilical hernia without obstruction and without gangrene K42.9 Obstruction and gangrene presence: without obstruction or gangrene Pure hypercholesterolemia E78.00 Vitamin D deficiency E55.9 Anxiety F41.9 Depression, unspecified depression type F32.A Depression Type: unspecified Obesity (BMI 30-39.9) E66.9 Assessment & Plan Assessment & Plan (1) Annual physical exam: Code(s): Z00.00 - Encounter for general adult medical examination without abnormal findings Category: Medical Plan: Patient is reminded to try to get his follow-up labs done JUAN M to complete his annual exam today He had a normal screening colonoscopy last done couple of years ago in 2022 - was recommended to have repeat colonoscopy done in 10 years (2032) (2) Pruritic erythematous rash: Code(s): L29.89 - Other pruritus Category: Medical Plan: Continue Triamcinolone acetonide 0.1% TID PRN for now Will refer him to dermatology for further evaluation and management (3) Umbilical hernia: Code(s): K42.9 - Umbilical hernia without obstruction or gangrene Category: Medical Qualifiers: Obstruction and gangrene presence: without obstruction or gangrene Qualified Code(s): K42.9 - Umbilical hernia without obstruction or gangrene Plan: Will refer patient to surgery for consideration for umbilical hernia repair (4) Pure hypercholesterolemia: Code(s): E78.00 - Pure hypercholesterolemia, unspecified Category: Medical Plan: Patient is advised that his total and LDL cholesterol levels have increased from before on his previous labs done back in December 2023 so he should try to get his follow up labs done JUAN M Reinforced low cholesterol diet Will have patient recheck his labs and fasting lipids again in 6 months for follow up (5) Vitamin D deficiency: Code(s): E55.9 - Vitamin D deficiency, unspecified Category: Medical Plan: Continue OTC Vitamin D3 2000 units QD (6) Anxiety: Code(s): F41.9 - Anxiety disorder, unspecified Category: Medical Plan: Continue Lorazepam 0.5 mg BID PRN Have offered to refer patient to psychiatry for therapy and counseling before and/or start him on a trial of Rx to help with his mood but patient declined both States that he is trying to get in to see psychiatry on his own and he will call for referral if he finds out he needs one States that his Lorazepam helps although he tries not to take it all the time (7) Depression: Code(s): F32.A - Depression, unspecified Category: Medical Qualifiers: Depression Type: unspecified Qualified Code(s): F32.A - Depression, unspecified Plan: Patient has declined referral to psychiatry and also declined offer to start him on some Rx but is aware that he can call at any time if he changes his mind about these options Patient states that he is trying to get in to see psychiatry on his own for now (8) Obesity (BMI 30-39.9): Code(s): E66.9 - Obesity, unspecified Category: Medical Plan: Reinforced diet/exercise as tolerated/lose weight Plan Follow up in 6 months Orders: Orders Comprehensive [place]. Panel Fast 6 Months E78.00 - Pure hypercholesterolemia, unspecified Lipid Panel 6 Months E78.00 - Pure hypercholesterolemia, unspecified Referrals General Surgery Referral K42.9 - Umbilical hernia without obstruction or gangrene, R10.9 - Unspecified abdominal pain Dermatology Referral L29.89 - Other pruritus
--- OUTSIDE RECORDS SUMMARY | 2025-01-24 16:57 | XMS_ITS | Clinical Summary ---
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 Name Role Phone Unavailable Primary Care Provider [...] of 3 - 19+ 3-dose series) 10/16/1995 Depression Screening 04/12/2024 COVID-19 Vaccine ( - 2023-2 5 season) 2024 Influenza Vaccine (#1) 2024 RSV Immunization Adult Patie nts (1 - 1-dose 75+ series) 10/16/2051 HIB Vaccines Aged Out No longer eligi [...] 5 Years) and At-Risk Patients (6 to 49 Years) Aged Out No longer eligible b ased on patient's age to complete this topic RSV Immunization Patients Un ricardo 20 months Aged Out No longer eligible b ased on patient's age to complete this topic Varicella Vaccines Aged Out No longer eligible based on patient's age to complete this topic
== END 2025-01-24 14:26 | disposition home or self-care (01) ==
LOC: HO.HMCH 13:20
PROVIDERS: PCP Internal Medicine; Visit Provider Internal Medicine
DX: Z00.00 Encounter for general adult medical examination without abnormal findings (principal); L29.89 Other pruritus; E66.9 Obesity, unspecified; Z68.31 Body mass index [BMI] 31.0-31.9, adult; K42.9 Umbilical hernia without obstruction or gangrene; E78.00 Pure hypercholesterolemia, unspecified; E55.9 Vitamin D deficiency, unspecified; F41.9 Anxiety disorder, unspecified; F32.A Depression, unspecified

== ENCOUNTER 2025-01-31 04:10 | Emergency (ER) | payer BC, SELFPAY ==
--- NOTE | ~2025-01-31 | CT_ITS ---
EXAMINATION: CT ABDOMEN AND PELVIS WITH CONTRAST CLINICAL INFORMATION: Umbilical vein. Nausea. COMPARISON: April 16, 2020. TECHNIQUE: Multidetector volumetric images were obtained from the superior aspect of the liver through the pubic symphysis following administration 85 mL of Omnipaque 350 intravenous contrast. Sagittal and coronal reformatted images were obtained on the technologist's workstation. Oral contrast: No This CT examination was performed using dose optimization techniques as appropriate, variously including the following: *Automated exposure control *Adjustment of mA and/or kV according to patient size (this includes techniques or standardized protocols for targeted exams where dose is matched to indication/reason for exam; i.e. extremities or head) *Use of iterative reconstruction technique. DLP: 873 mGy centimeter. FINDINGS: LUNG BASES: Subsegmental atelectasis versus scarring, lung bases lingula and right middle lung lobe. LIVER, GALLBLADDER, AND BILIARY TREE: Liver measures 18 cm. No focal mass. There is a 7 mm hypodensity in the dome right hepatic lobe. 2 small to be fully characterized. Portal veins, hepatic veins are patent. Gallbladder is contracted without pericholecystic fluid collection or gallbladder wall thickening. No intrahepatic or extrahepatic biliary ductal dilatation. PANCREAS: No focal mass. No peripancreatic fluid collections. No main pancreatic ductal dilatation. SPLEEN: 10 cm. No focal mass. ADRENAL GLANDS: No nodular lesions. KIDNEYS AND URETERS: No hydronephrosis. No gross nephrolithiasis. No enhancing renal mass. Normal enhancement of the renal parenchyma. No dilatation of the ureters. BLADDER: Fluid-filled nearly collapsed. GASTROINTESTINAL TRACT: Appendix is normal. Small hiatal hernia. Numerous diverticula throughout the large intestine. No pneumatosis intestinalis. No intestinal obstruction pattern. Fatty intestinal wall. No ascites. No pneumoperitoneum. No peripheral enhancing fluid collections. ABDOMINAL WALL: Fat-containing umbilical hernia with mild edema pattern. LYMPH NODES: No specific prominent mesenteric. VASCULAR: No aneurysm or dissection, abdominal aorta. PELVIC VISCERA: Not enlarged. OSSEOUS STRUCTURES: A shaped curvature of the thoracolumbar spine. Multilevel thoracolumbar spondylosis. No acute fracture or gross listhesis. Bony pelvis is intact. Coxofemoral joints are intact with normal alignment. Degenerative changes in the symphysis pubis. CT/CT abdomen pelvis w IV con IMPRESSION: Fat-containing umbilical hernia with mild edema pattern. Diverticular disease. Hepatomegaly. Subcentimeter cystic lesion right hepatic lobe. Fleischner guidelines were followed. Electronically signed by: Sivakumar Shin MD 01/31/2025 07:22 AM EDT RP
[2025-01-31 04:24] VITALS: BP 128/78; PULSE 77; RESP 18; TEMP 37.1; O2SAT 97; BMI 37.3
[2025-01-31 05:08] LABS: MANUAL DIFF FLAG NO
[2025-01-31 05:10] LABS: Hematocrit 37.9 % (42.0-52.0); Hemoglobin 13.2 g/dl (14.0-18.0); Imm Gran Abs Auto 0.01 X10*3/uL (0.00-0.03); Imm Gran Pct Auto 0.2 % (0.0-0.4); Lymphocytes Absolute Auto 1.7 X10*3/uL (1.2-4.9); Mean Corpuscular HGB Conc 34.8 g/dl (31.0-36.0); Mean Corpuscular Hemoglobin 30.1 pg (27.0-33.0); Mean Corpuscular Volume 86.5 fL (80.0-98.0); NRBC Abs Auto 0.000 X10*3/uL (0.0-0.012); NRBC Pct Auto 0.0 /100WBC (0.0-0.2); Platelet Count 223 X10*3/uL (160-400); Red Blood Count 4.38 X10*6/uL (4.60-5.80); White Blood Count 5.1 X10*3/uL (4.8-10.8)
[2025-01-31 05:28] LABS: Alanine Aminotransferase 32 U/L (0-40); Albumin Level 4.5 g/dL (3.5-5.0); Alkaline Phosphatase 99 U/L (39-117); Anion Gap 13 (12-20); Blood Urea Nitrogen 12 mg/dL (9-16); Calcium 9.4 mg/dL (8.4-10.2); Carbon Dioxide 24 mmol/L (22-29); Chloride 107 mmol/L (96-108); Creatinine Clr Calc Pharmacy 127.1; Estimated Glomerular Filt Rate > 60; Potassium 4.0 mmol/L (3.3-5.1); Sodium 140 mmol/L (135-145); Total Protein 7.5 g/dL (6.5-8.0)
--- OUTSIDE RECORDS SUMMARY | 2025-01-31 05:31 | XMS_ITS | Clinical Summary ---
Author Organization [facility] [address] it Address [address] [place] [address] Care Team Providers Care Superintendent Quarry Name Role Phone Unavailable Primary Care Provider [...]
[2025-01-31 05:45] LABS: Aspartate Amino Transferase 30 U/L (5-37)
--- NOTE | 2025-01-31 06:10 | ED.ABDPAIN ---
HPI - Abdominal Pain General Chief Complaint: Abdominal Pain Stated Complaint: hernia Time Seen by Provider: 01/31/25 06:00 Source: patient and old records reviewed Mode of arrival: ambulatory Limitations: no limitations History of Present Illness ED Provider: DIONISIO SAUCEDO narrative: 49 yo male with PMH of HLD, depression, prior R inguinal hernia, umbilical hernia repair a few years ago here now with c/o worsening umbilical pain x 1 month worse with lifting at his job. He has increased belching and mild nausea. His stools are loose but no other changes. He notes it hurts to move. He felt something in the umbilicus itself was smelly. He has rash that he knows of. He didn't have a trauma to cause his symptoms. MD elicited complaint: abdominal pain Pertinent past history: other Onset (ago): month(s) (1) Pain Consistency: intermittent Location: periumbilical Severity: moderate Quality: aching and dull Radiation: none Migration to: no migration Exacerbating factors: movement Relieving factors: nothing Context: history of similar episodes Associated symptoms: nausea Related Data Previous Rx's ?Medication ?Instructions ?Recorded triamcinolone acetonide 0.1 % 1 appl topical TID PRN rash #60 mL 07/12/23 lotion lorazepam 0.5 mg tablet 0.5 mg PO BID PRN anxiety 30 days 08/24/24 #60 tabs ketorolac 10 mg tablet 10 mg PO TID PRN pain 5 days #15 01/31/25 tabs ondansetron 4 mg disintegrating 4 mg PO Q8H PRN nausea and 01/31/25 tablet vomiting #20 tabs Allergies Allergy/AdvReac Type Severity Reaction Status Date / Time No Known Allergies Allergy Verified 01/31/25 04:27 Review of Systems Review of Systems Constitutional : No Weight loss, No Fever, No Chills Cardiovascular : No Chest Pain, No SOB, NoEdema Respiratory : No Cough, No Sputum, No Wheezing Gastrointestinal : Positive Nausea, no Vomiting, no Diarrhea, positive abdominal Pain, No Hematochezia, No Melena Genitourinary : No Dysuria, No Urinary Frequency, No Hematuria, No Urgency Musculoskeletal : No joint pain, No Myalgias, No Joint Swelling Skin : No Skin Lesions, No rash All other systems reviewed and are negative. [facility] Past Medical History Attestation statement: The following information was validated with the patient. Source: old records reviewed Medical History Overweight (BMI 25.0-29.9) Vitamin D deficiency Pure hypercholesterolemia Umbilical hernia Right inguinal hernia Obesity (BMI 30-39.9) Varicocele Insomnia Anxiety Attention deficit disorder Surgical History H/O colonoscopy History of umbilical hernia repair (~03/27/22) History of right inguinal hernia repair Status post pericardial cyst excision (~08/13/16) Family History Family History Father Coronary artery disease Hypertension Brother Hyperlipidemia Social History Social History Housing: House Alcohol intake: current Alcohol intake frequency: holidays/special occasions only Patient Tobacco Use Status: Never used Tobacco Smoked in Last 30 Days: No e-Cigarette/Vaping Use: Never Used Second Hand Smoke Exposure: No Use of substances other than those prescribed or required for medical reasons: No Advance Directives: Yes Advance Directives Information Provided: Yes Advance Directives on File: No service: No Current occupational status: employed Cognitive needs: No Hearing needs: No Vision needs: Yes (Glasses) Physical Exam ED Vital Signs: Vital Signs - 24 hr 01/31/25 04:24 Temperature 98.7 F Pulse Rate 77 Respiratory Rate 18 Blood Pressure 128/78 Pulse Oximetry 97 Oxygen Delivery Method Room Air BMI result Body Mass Index 37.3 Appearance: Alert. Oriented X3. No acute distress. Eyes: Pupils equal, round and reactive to light. ENT: Pharynx normal. Neck: Normal inspection. Neck supple. CVS: Normal heart rate and rhythm. Pulses normal. Respiratory: No respiratory distress. Breath sounds normal. Abdomen: Soft and no rash has soft hernia in umbilicus - feels soft and not firm, no distention, no discharge noted Skin: Skin warm and dry. Normal skin color. Normal skin turgor. Extremities: No lower extremity edema. No calf ttp Neuro: Oriented X 3. No motor deficit. No sensory deficit. Medical Decision Making Medical Decision Making MDM Narrative: 49 yo male with PMH of HLD, depression, prior R inguinal hernia, umbilical hernia repair a few years now here with pain worsening x 1 month clinically not obstructed and no gangrene. At this time will need basic labs, CT scan for obstruction, IV toradol for pain. Differential Diagnosis Differential Diagnoses: The differential diagnosis associated with the presentation includes hernia, abdominal pain Admission/Observation Consideration of admission/observation: Escalation of care including admission/observation considered fat containing hernia at this time can follow up with surgery as outpatient Lab Data MDM Lab Attestation statement: I reviewed the patient's lab results. 01/31/25 05:03 01/31/25 05:03 Labs: Lab Results 01/31/25 Range/Units 05:03 WBC 5.1 (4.8-10.8) X10*3/uL RBC 4.38 L (4.60-5.80) X10*6/uL Hgb 13.2 L (14.0-18.0) g/dl Hct 37.9 L (42.0-52.0) % MCV 86.5 (80.0-98.0) fL MCH 30.1 (27.0-33.0) pg MCHC 34.8 (31.0-36.0) g/dl RDW 12.8 (11.0-16.0) % Plt Count 223 (160-400) X10*3/uL MPV 8.4 L (9.4-12.4) fL Immature Gran % (Auto) 0.2 (0.0-0.4) % Neut % (Auto) 51.7 (45-73) % Lymph % (Auto) 32.7 (20-40) % Irion % (Auto) 11.9 H (2-11) % Eos % (Auto) 2.9 (0-4) % Baso % (Auto) 0.6 (0-2) % Lymph # (Auto) 1.7 (1.2-4.9) X10*3/uL Irion # (Auto) 0.6 (0.1-1.2) X10*3/uL Eos # (Auto) 0.2 (0.0-0.4) X10*3/uL Baso # (Auto) 0.0 (0.0-0.2) X10*3/uL Abs Immat Gran (auto) 0.01 (0.00-0.03) X10*3/uL Absolute Neuts (auto) 2.7 (2.0-8.3) x10*3/uL Absolute Nucleated RBC 0.000 (0.0-0.012) X10*3/uL Nucleated RBC % (auto) 0.0 (0.0-0.2) /100WBC Sodium 140 (135-145) mmol/L Potassium 4.0 (3.3-5.1) mmol/L Chloride 107 (96-108) mmol/L Carbon Dioxide 24 (22-29) mmol/L Anion Gap 13 (12-20) BUN 12 (9-16) mg/dL Creatinine 0.86 (0.5-1.4) mg/dL Estim Creat Clear Calc 127.1 Estimated GFR > 60 Random Glucose 96 (60-115) mg/dL Calcium 9.4 (8.4-10.2) mg/dL Total Bilirubin 0.7 (0.0-1.0) mg/dL AST 30 (5-37) U/L ALT 32 (0-40) U/L Alkaline Phosphatase 99 (39-117) U/L Total Protein 7.5 (6.5-8.0) g/dL Albumin 4.5 (3.5-5.0) g/dL Lipase 22 (8-78) U/L Independent Interpretation I performed an independent interpretation of an: CT Scan (fat containing hernia) Radiology Impression Discussion of test interpretation with radiology: I have reviewed the radiologist's reading. External Record Review External record reviewed: Outpatient record Prescription Management I considered prescription management with: Pain Medication and Other Medications Administered Discontinued Medications Generic Name Dose Route Start Last Admin Trade Name Tessa PRN Reason Stop Dose Admin Iohexol 85 ml 01/31/25 06:24 01/31/25 06:24 Iohexol 350 Mg/Ml 100 Ml Infus..Btl IV 01/31/25 06:25 85 ml ONCE ONE Administration Ketorolac Tromethamine 15 mg 01/31/25 06:08 01/31/25 06:39 Ketorolac Tromethamine 15 Mg/Ml Vial IVPUSH 01/31/25 06:09 15 mg ONCE ONE Administration Ondansetron HCl 4 mg 01/31/25 06:08 01/31/25 06:39 Ondansetron Hcl 4 Mg/2 Ml Vial IVPUSH 01/31/25 06:09 4 mg ONCE ONE Administration Discharge Plan Discharge Clinical Impression: Hernia Patient Disposition: Home, Self-Care Instructions: Umbilical Hernia (ED) Additional Instructions: your labs are reassuring - normal kidney, liver, pancreas, your blood counts are normal your CT scan shows enlarged liver likely fatty and fat in the hernia but no intestines avoid lifting more than 15lbs until you see surgery return for worrsening pain, unable to eat or drink, unable to pass gas (fart) or have a bowel movement DO NOT MIX MOTRIN, ALEVE, IBUPROFEN WITH THE KETOROLAC Prescriptions: New ketorolac 10 mg tablet 10 mg PO TID PRN (Reason: pain) 5 Days Qty: 15 0RF Rx Instructions: given IV toradol in department ondansetron 4 mg tablet,disintegrating 4 mg PO Q8H PRN (Reason: nausea and vomiting) Qty: 20 0RF No Action triamcinolone acetonide 0.1 % lotion 1 appl topical TID PRN (Reason: rash) Qty: 60 2RF lorazepam 0.5 mg tablet 0.5 mg PO BID PRN (Reason: anxiety) 30 Days Qty: 60 0RF Referrals: [facility] General Surgeons [Provider Group, General Surgery] Stand Alone Forms: Work/School Release Print Language: Persian
[2025-01-31 06:24] LABS: Lipase 22 U/L (8-78)
[2025-01-31] MEDS: iohexoL 350 MG/ML 100 ML INFUS..BTL 85 ML IV (06:24)
[2025-01-31 07:47] VITALS: BP 142/94; PULSE 61; RESP 16; TEMP 36.3; O2SAT 96
== END 2025-01-31 07:48 | disposition home or self-care (01) ==
PROVIDERS: Emergency Provider Emergency Medicine; PCP Internal Medicine
DX: K40.90 Unilateral inguinal hernia, without obstruction or gangrene, not specified as recurrent (principal); R10.22 Pelvic and perineal pain left side
CPT/HCPCS: 36415; 74177; 80053; 83690; 85025; 99284; J1885; J2405; Q9967

== ENCOUNTER → 2025-01-31 06:08 | Outpatient (BNV) | payer BC, SELFPAY | PROVIDERS: Emergency Provider Emergency Medicine; PCP Internal Medicine; Visit Provider Radiology Diagnostic Radiology | DX: K42.9 Umbilical hernia without obstruction or gangrene (principal); K57.90 Diverticulosis of intestine, part unspecified, without perforation or abscess without bleeding; R16.0 Hepatomegaly, not elsewhere classified; K76.89 Other specified diseases of liver | CPT/HCPCS: 74177 ==

== ENCOUNTER 2025-01-31 09:38 | Outpatient (AMB) | payer BC, SELFPAY ==
--- NOTE | 2025-01-31 09:42 | MHC.OFFVIS ---
Vital Signs 01/31/25 09:49 Height 5 ft 8 in Weight 251 lb 5.231 oz BMI 38.2 BP 165/78 H Blood Pressure Location Lt brachial Position Sitting Pulse 95 Intake Visit Reasons: hernia flare Intake Note: Patient is seen in office for ER follow up visit, following hernia flare up. 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 He went to the ER this morning because of pain on his umbilicus. He said he would notice a reducible mass in the area and this has been going on for about a few months now. He says that he has been doing a lot of heavy lifting at work recently He did have repair of this umbilical hernia in 2021. He said that he had been doing well after that until the past few months. He denies any GI complaints currently. [facility] Medical History (Updated 01/31/25 @ 10:02 by Alexey Caceres MD) Recurrent umbilical hernia Overweight (BMI 25.0-29.9) Vitamin D deficiency Pure hypercholesterolemia Umbilical hernia Right inguinal hernia Obesity (BMI 30-39.9) Varicocele Insomnia Anxiety Attention deficit disorder Surgical History H/O colonoscopy History of umbilical hernia repair (~03/27/22) History of right inguinal hernia repair Status post pericardial cyst excision (~08/13/16) Family History Father Coronary artery disease Hypertension Brother Hyperlipidemia Social History Housing: House Alcohol intake: current Alcohol intake frequency: holidays/special occasions only Patient Tobacco Use Status: Never used Tobacco e-Cigarette/Vaping Use: Never Used Second Hand Smoke Exposure: No service: No Current occupational status: employed Cognitive needs: No Hearing needs: No Vision needs: Yes (Glasses) Review of Systems Const Denies chills and Denies fever(s) Card Denies chest pain, Denies dyspnea and Denies dyspnea on exertion Resp Denies cough, Denies dyspnea and Denies dyspnea on exertion GI Denies hematochezia and Denies change in bowel habits Denies hematuria and Denies difficulty urinating Musc Denies back pain and Denies limited range of motion Neuro Denies focal weakness and Denies convulsions Psych Denies depression and Denies mood swings Physical Exam Vital Signs: Last Vital Signs Pulse 95 01/31/25 09:49 BP 165/78 H 01/31/25 09:49 BMI result Body Mass Index 38.2 Const General: comfortable and no acute distress Orientation/consciousness: patient oriented x3 Neck Neck: Yes no lymphadenopathy Resp Auscultation: clear to auscultation bilaterally Cardio Rhythm: regular rhythm GI Other: Reducible umbilical hernia, about 1 cm, tender to touch Palpation (GI): Soft to palpation, nontender and no guarding Neuro General: patient oriented x3 Assessment & Plan Assessment & Plan (1) Recurrent umbilical hernia: Code(s): K42.9 - Umbilical hernia without obstruction or gangrene Category: Medical Plan: He had a CAT scan in the ER showing what appears to be a fat containing small umbilical hernia. This is a recurrence as he had previous surgery in 2021 I explained to him the technique of repair with possible mesh. I reviewed the risks including but not limited to bleeding, infections, bowel injury, recurrence, as well as the benefits and alternatives. He understands and wants to proceed I did advise him on the benefits of weight loss last I told him that this has a factor in the risk of recurrence. Coding Level of Care Code Est Pt Level 3 (50784) Diagnoses Recurrent umbilical hernia K42.9
[2025-01-31 09:49] VITALS: BP 165/78; PULSE 95; BMI 38.2
== END 2025-01-31 10:01 | disposition home or self-care (01) ==
LOC: HO.HGS 09:39
PROVIDERS: PCP Internal Medicine; Visit Provider Surgery
DX: K42.9 Umbilical hernia without obstruction or gangrene (principal)
CPT/HCPCS: 99213

== ENCOUNTER 2025-02-20 09:55 | Day surgery (SDC) | payer BC, SELFPAY ==
--- OUTSIDE RECORDS SUMMARY | 2025-02-05 14:54 | XMS_ITS | Clinical Summary ---
Author Organization [facility] it Address [address] [place] [address] Care Team Providers Care Senior Power Scheduler Name Role Phone Unavailable Primary Care Provider [...]
--- NOTE | 2025-02-15 09:32 | P.CONAN_ITS ---
Documented by User: Parul Shore NP 02/15/25 09:35 HPI - Anesthesia Eval Consult details Narrative: 49 yr old male for ?Repair Recurrent Hernia Umbilical Reducible,possible mesh PMFSH Active Problems Active Problems: All Active Problems (Updated 02/01/25 @ 00:01 by Background Marita) Recurrent umbilical hernia (Acute) Pruritic erythematous rash (Acute) Abdominal pain (Acute) Dermatitis (Acute) Overweight (BMI 25.0-29.9) (Acute) Depression (Acute) Ileal erosions (Acute) Colon cancer screening (Acute) Vitamin D deficiency (Acute) Pure hypercholesterolemia (Acute) Annual physical exam (Acute) Left sided abdominal pain (Acute) Umbilical mass (Acute) Abdominal bloating (Acute) Inguinal pain (Acute) Inguinal swelling (Acute) Hernia (Acute) Internal hemorrhoid, bleeding (Acute) Preoperative examination (Acute) Anxiety (Acute) Umbilical hernia (Acute) Right inguinal hernia (Acute) Obesity (BMI 30-39.9) (Acute) Past Medical History Medical History Recurrent umbilical hernia Overweight (BMI 25.0-29.9) Vitamin D deficiency Pure hypercholesterolemia Umbilical hernia Right inguinal hernia Obesity (BMI 30-39.9) Varicocele Insomnia Anxiety Attention deficit disorder Family History Family History Father Coronary artery disease Hypertension Brother Hyperlipidemia Family history of problems with anesthesia: No Surgical History Surgical History H/O colonoscopy (2022) History of umbilical hernia repair (03/27/22) History of right inguinal hernia repair (2020) Status post pericardial cyst excision (~08/13/16) History of Problems with Anesthesia: No Social History Social History Housing: House Are you a primary summer child caregiver to a significant other at home: No Do you presently have visiting nurse or other home services: No Alcohol intake: current Alcohol intake frequency: holidays/special occasions only Patient Tobacco Use Status: Never used Tobacco e-Cigarette/Vaping Use: Never Used Second Hand Smoke Exposure: No Have you been hit, kicked, punched, or otherwise hurt by someone within the past year? If so, by whom?: No Are you DNR?: No Advance Directives: No Advance Directives Information Provided: Yes service: No Current occupational status: employed Cognitive needs: No Hearing needs: No Vision needs: Yes (Glasses) Meds Allergies Allergy/AdvReac Type Severity Reaction Status Date / Time No Known Allergies Allergy Verified 02/20/25 10:24 Exam Pertinent Lab Results Pertinent Lab Results: Laboratory Tests 01/31/25 05:03 WBC 5.1 RBC 4.38 L Hgb 13.2 L Hct 37.9 L Plt Count 223 Sodium 140 Potassium 4.0 Chloride 107 Carbon Dioxide 24 BUN 12 Creatinine 0.86 Assessment and Plan Final Anesthetic Review Family History of Problems with Anesthesia: No History of Problems with Anesthesia: No Documented by User: Samuel Desai MD 02/20/25 10:32 [facility] Past Medical History Medical History Recurrent umbilical hernia Overweight (BMI 25.0-29.9) Vitamin D deficiency Pure hypercholesterolemia Umbilical hernia Right inguinal hernia Obesity (BMI 30-39.9) Varicocele Insomnia Anxiety Attention deficit disorder Family History Family History Father Coronary artery disease Hypertension Brother Hyperlipidemia Surgical History Surgical History H/O colonoscopy (2022) History of umbilical hernia repair (03/27/22) History of right inguinal hernia repair (2020) Status post pericardial cyst excision (~08/13/16) Social History Social History Housing: House Are you a primary summer child caregiver to a significant other at home: No Do you presently have visiting nurse or other home services: No Alcohol intake: current Alcohol intake frequency: holidays/special occasions only Patient Tobacco Use Status: Never used Tobacco e-Cigarette/Vaping Use: Never Used Second Hand Smoke Exposure: No Have you been hit, kicked, punched, or otherwise hurt by someone within the past year? If so, by whom?: No Are you DNR?: No Advance Directives: No Advance Directives Information Provided: Yes service: No Current occupational status: employed Cognitive needs: No Hearing needs: No Vision needs: Yes (Glasses) Meds Allergies Allergy/AdvReac Type Severity Reaction Status Date / Time No Known Allergies Allergy Verified 02/20/25 10:24 Exam Exam Date and Time: 02/20/2025 Airway Mallampati Class: II TM Dist: >3cm Neck ROM: Full Heart: rrr Lungs: ctab vesicular Assessment and Plan Assessment Anesthesia Assessment: Anesthesia Plan Discussed and PAT Visit Final Anesthetic Review NPO: Yes ASA Class: II Final Preanesthetic Review: No Changes in Pt Med Stat, Meds/Allgs Chart Reviewed, Consent Obtained/Reviewed and Anes Risks/Benef Reviewed Patient Risk: Low Procedure Risk: Low Anesthetic Plan Anesthetic Plan: GA Disposition: Standard PACU
[2025-02-16 09:30] VITALS: BMI 38.2
[2025-02-20 10:04] VITALS: BMI 38.4
[2025-02-20] MEDS: Lactated Ringers 1,000 ML 100 ML IVCONT (10:22)
[2025-02-20 10:23] VITALS: BP 128/79; PULSE 52; RESP 18; TEMP 36.7; O2SAT 97
--- NOTE | 2025-02-20 10:58 | MHC.SHP ---
Pre-Procedural Eval Section A - 24 Hr Update-Section A only Date of Service: 02/20/25 The patient is an INPATIENT: No Changes since office visit: No Cold of Flu in the past 2 weeks, No New Medical Problems, No Changes in Medication and No Patient answered all questions The patient has been examined within 24 hours of the surgical procedure. The History & Physical has been completed within 30 days and I have reviewed it.: Yes Section B - Complete if H&P > 30 days Chief Complaint: Umbilical hernia without obstruction or gangrene Allergies: Allergies Allergy/AdvReac Type Severity Reaction Status Date / Time No Known Allergies Allergy Verified 02/20/25 10:24 Plan I have reviewed the history and physical and performed a pertinent physical examination on my patient. No changes have occurred unless specified. Time Spent With Patient Time: Total time managing care of this patient today ____ minutes.
--- NOTE | 2025-02-20 11:59 | P.OP_ITS ---
Operative Note Operative Note Date of Service: 02/20/25 Narrative: Preop diagnosis: Recurrent umbilical hernia, reducible Postop diagnosis: The same Procedure: Repair of a recurrent umbilical hernia with Phasix umbilical mesh Surgeon: Alexey Caceres MD 1st shipping and receiving assistant: CHRISTINA Robertson The patient is a 49-year-old male with note of recurrent reducible umbilical hernia. He understood the technique of the planned procedure as well as the risks, benefits, and alternatives He was brought to the operating room. He was placed supine under general anesthesia via laryngeal mask airway. The abdomen was prepped and draped in the usual sterile fashion. A surgical time-out was done. The patient received cefazolin 2 g IV preoperatively I infiltrated the planned line of incision with lidocaine 1%. I made a transverse curvilinear infraumbilical incision with a blade 15. This has carried down with electrocautery through the full-thickness of the skin and part of the subcutaneous fat. I then proceeded to use Metzenbaum scissors to gently create a plane of dissection underneath the umbilicus. By doing so, as able to visualize the hernia contents. I sharply dissected all these hernia contents from the rest of the umbilicus. I divided adherent tissue from the contents of the umbilical hernia tethering this to the fascial defect with Metzenbaum scissors until was able to completely reduce this hernia. The fascial defect was about 1.3 cm. I cleared the underside of the fascial defect to allow placement of the mesh. I used a small-sized Phasix umbilical mesh and this was flattened under the fascial defect with good overlap. I secured the Prolene straps of the mesh on both sides of the fascial layer with Prolene 2 sutures. I then trimmed the Prolene straps flush on the fascial level I closed the fascial defect with a [id number] Maxon 1 stitch. The umbilicus was then tacked down to the fascia with a Polysorb 3-0 stitch to re-create the dimple The subdermal layer was reapposed with Polysorb 3-0 simple interrupted sutures. Skin closure was achieved with Polysorb 4-0 subcuticular running sutures. The area was infiltrated with Marcaine 0.5% for postop analgesia. Dressings were applied and the procedure was completed The patient tolerated the procedure well. There were no immediate complications. Initial and final counts of sponges and instruments were correct. Estimated blood loss was less than 10 cc The patient was extubated without difficulty and transferred to the recovery room with stable vital signs.
[2025-02-20 12:12] VITALS: BP 121/80; PULSE 60; RESP 12; TEMP 36.7; O2SAT 97
[2025-02-20 12:17] VITALS: BP 121/78; PULSE 53; RESP 12; O2SAT 97
[2025-02-20 12:22] VITALS: BP 111/78; PULSE 56; RESP 12; O2SAT 97
[2025-02-20 12:26] VITALS: BP 120/83; PULSE 56; RESP 12; O2SAT 93
[2025-02-20] MEDS: oxyCODONE HCl Immed Release 5 MG TABLET PO (12:34)
[2025-02-20 12:41] VITALS: BP 116/80; PULSE 60; RESP 16; TEMP 36.4; O2SAT 96
== END 2025-02-20 13:27 | disposition home or self-care (01) ==
PROVIDERS: PCP Internal Medicine; Visit Provider Surgery
PROC: (CPT 49613; principal; 2025-02-20 11:30)
DX: K42.9 Umbilical hernia without obstruction or gangrene (principal); I86.1 Scrotal varices; G47.00 Insomnia, unspecified; E66.9 Obesity, unspecified; Z68.38 Body mass index [BMI] 38.0-38.9, adult; E78.00 Pure hypercholesterolemia, unspecified; E55.9 Vitamin D deficiency, unspecified; F41.9 Anxiety disorder, unspecified; F98.8 Other specified behavioral and emotional disorders with onset usually occurring in childhood and adolescence; Z79.899 Other long term (current) drug therapy; Z98.890 Other specified postprocedural states
CPT/HCPCS: 49613; C1781; J0690; J1885; J2003; J2250; J2405; J2795; J3010

== ENCOUNTER → 2025-02-20 09:55 | Outpatient (BNV) | payer BC, SELFPAY | PROVIDERS: PCP Internal Medicine; Visit Provider Surgery | DX: K42.9 Umbilical hernia without obstruction or gangrene (principal) | CPT/HCPCS: 49613 ==

== ENCOUNTER 2025-03-05 10:03 | Outpatient (AMB) | payer BC, SELFPAY ==
--- NOTE | 2025-03-05 10:04 | A.OFFVIS_ITS ---
Vital Signs 03/05/25 10:05 Height 6 ft 3 in Weight 250 lb BMI 31.2 Intake Visit Reasons: S/P umbilical hernia w/poss mesh Intake Note: This patient presents for post-op assessment status post Repair of a recurrent umbilical hernia with Phasix umbilical mesh. Pt c/o; reports no complaints at this time pertaining to surgery. 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 He tolerated the procedure well. He currently denies significant complaints. [facility] Medical History Recurrent umbilical hernia Overweight (BMI 25.0-29.9) Vitamin D deficiency Pure hypercholesterolemia Umbilical hernia Right inguinal hernia Obesity (BMI 30-39.9) Varicocele Insomnia Anxiety Attention deficit disorder Surgical History History of umbilical hernia repair (~02/20/25) H/O colonoscopy (2022) History of umbilical hernia repair (03/27/22) History of right inguinal hernia repair (2020) Status post pericardial cyst excision (~08/13/16) Family History Father Coronary artery disease Hypertension Brother Hyperlipidemia Social History Housing: House Are you a primary ocular care technician to a significant other at home: No Do you presently have visiting nurse or other home services: No Alcohol intake: current Alcohol intake frequency: holidays/special occasions only Patient Tobacco Use Status: Never used Tobacco e-Cigarette/Vaping Use: Never Used Second Hand Smoke Exposure: No service: No Current occupational status: employed Cognitive needs: No Hearing needs: No Vision needs: Yes (Glasses) Review of Systems Const Denies chills and Denies fever(s) GI Denies abdominal pain Physical Exam Vital Signs: BMI result Body Mass Index 31.2 Const General: comfortable and no acute distress Resp Effort & Inspection: normal respiratory effort GI Other: Umbilical hernia repair site well healed, not infected, repair intact Palpation (GI): Soft to palpation, not firm, nontender and no guarding Assessment & Plan Assessment & Plan (1) Recurrent umbilical hernia: Code(s): K42.9 - Umbilical hernia without obstruction or gangrene Category: Medical Plan: Status post repair with mesh. He is doing very well. The repair site is intact. The incision is well healed He said that he has had 2 recurrences already so he stated that he would not be able to return to work until April 13, 2025 as his work involves a lot of heavy lifting. He can otherwise follow up with me on a p.r.n. basis. Coding Level of Care Code Global (17083) Diagnoses Recurrent umbilical hernia K42.9
[2025-03-05 10:05] VITALS: BMI 31.2
--- OUTSIDE RECORDS SUMMARY | 2025-03-05 12:07 | XMS_ITS | Clinical Summary ---
Author Organization [facility] it Address [address] [place] [address] Care Team Providers Care Mid Level Project Manager Name Role Phone Unavailable Primary Care Provider [...] series) 10/16/1995 Depression Screening 04/12/2024 COVID-19 Vaccine (1 - 2024-2 6 season) 2024 Influenza Vaccine (#1) 2024 RSV [...]
== END 2025-03-05 10:22 | disposition home or self-care (01) ==
LOC: HO.HGS 10:04
PROVIDERS: PCP Internal Medicine; Visit Provider Surgery
DX: K42.9 Umbilical hernia without obstruction or gangrene (principal)
CPT/HCPCS: 99024